=== PATIENT | female | born 1980 | race Two or more races ===

== ENCOUNTER → 2016-07-20 | Outpatient (CLI) | payer OTHER | LOC: OD 11:35 | PROVIDERS: ATTEND Obstetrics & Gynecology Reproductive Endocrinology | DX: Z31.9 Encounter for procreative management, unspecified (principal) | CPT/HCPCS: 36415; 84144 ==

== ENCOUNTER → 2016-09-04 | Outpatient (CLI) | payer OTHER | LOC: OD 13:39 | PROVIDERS: ATTEND Obstetrics & Gynecology Reproductive Endocrinology | DX: Z33.1 Pregnant state, incidental (principal) | CPT/HCPCS: 36415; 84144; 84443; 84702 ==

== ENCOUNTER → 2016-10-23 | Outpatient (CLI) | payer OTHER | LOC: OD 15:01 | PROVIDERS: ATTEND Obstetrics & Gynecology Reproductive Endocrinology | DX: O03.9 Complete or unspecified spontaneous abortion without complication (principal) | CPT/HCPCS: 36415; 84702 ==

== ENCOUNTER → 2016-10-31 | Outpatient (CLI) | payer OTHER | LOC: OD 13:41 | PROVIDERS: ATTEND Obstetrics & Gynecology Reproductive Endocrinology | DX: O03.9 Complete or unspecified spontaneous abortion without complication (principal) | CPT/HCPCS: 36415; 84702 ==

== ENCOUNTER → 2016-11-07 | Outpatient (CLI) | payer OTHER | LOC: OD 09:46 | PROVIDERS: ATTEND Obstetrics & Gynecology Reproductive Endocrinology | DX: O03.9 Complete or unspecified spontaneous abortion without complication (principal) | CPT/HCPCS: 36415; 84702 ==

== ENCOUNTER → 2016-11-15 | Outpatient (CLI) | payer OTHER | LOC: OD 12:06 | PROVIDERS: ATTEND Obstetrics & Gynecology Reproductive Endocrinology | DX: O02.1 Missed abortion (principal) | CPT/HCPCS: 36415; 84702 ==

== ENCOUNTER → 2016-11-28 | Outpatient (CLI) | payer OTHER | LOC: OD 09:46 | PROVIDERS: ATTEND Obstetrics & Gynecology Reproductive Endocrinology | DX: O02.1 Missed abortion (principal) | CPT/HCPCS: 36415; 84702 ==

== ENCOUNTER 2017-06-29 20:13 | Emergency (ER) | payer OTHER ==
--- NOTE | 2017-06-29 22:43 | ER Document Report ---
ED Medical Screen (RME) - General Chief Complaint: High Blood Pressure Stated Complaint: HIGH BLOOD PRESSURE Time Seen by Provider: 06/29/17 22:41 Mode of Arrival: Ambulatory Information source: Patient TRAVEL OUTSIDE OF THE [place] IN LAST 30 DAYS: No - HPI Patient complains to provider of: high bp Notes: 06/29/17 22:41 Patient arrives with complaints of elevated blood pressure. The patient has a history of hypertension. She is 20 weeks and is currently taken 150 mg of labetalol 3 times a day for her blood pressure. She has been keeping her blood pressure log at home and states that it was elevated at home. She thought it might just been her machine so she went to [facility] and it continued to be elevated. She called her FLASH DRIER OPERATOR who directed her to the emergency department. Patient denies any symptoms. No headache, blurred vision , numbness, tingling, weakness. She denies any leg swelling or leg pain. She denies any abdominal pain, vaginal bleeding or discharge. Patient is nontoxic appearing on exam at this time. She is noted to have an elevated BP. Labs and urine have been ordered. Patient was evaluated in triage and was medically screened. Any pertinent orders based on the patient's complaints were ordered at this time. Patient will require further evaluation and will be taken to a room for further evaluation by another provider. This was explained to the patient and/or family at this time. - Related Data Allergies/Adverse Reactions: No Known Allergies Allergy (Unverified 05/12/14 20:55) Past Medical History - Past Medical History Cardiac Medical History: Reports: Hx Hypertension - Immunizations Hx Diphtheria, Pertussis, Tetanus Vaccination: Yes Physical Exam - Vital signs Vitals: Temp Pulse Resp BP Pulse Ox 98.3 F 80 17 165/102 H 99 06/29/17 20:57 06/29/17 20:57 06/29/17 20:57 06/29/17 20:57 06/29/17 20:57 Course - Vital Signs Vital signs: Temp Pulse Resp BP Pulse Ox 98.3 F 80 17 165/102 H 99 06/29/17 20:57 06/29/17 20:57 06/29/17 20:57 06/29/17 20:57 06/29/17 20:57
[2017-06-29 23:33] LABS: ABSOLUTE EOSINOPHILS # (AUTO) 0.1 10^3/uL (0.0-0.6); ABSOLUTE LYMPHOCYTES (AUTO) 2.2 10^3/uL (0.5-4.7); ABSOLUTE MONOCYTES (AUTO) 0.8 10^3/uL (0.1-1.4); ABSOLUTE NEUT (AUTO) 6.8 10^3/uL (1.7-8.2); BASOPHILS % (AUTO) 0.4 % (0-2); EOSINOPHILS % (AUTO) 1.4 % (0-6); HEMATOCRIT 32.1 % (36.0-47.0); HEMOGLOBIN 10.7 g/dL (12.0-15.5); LYMPHOCYTES % (AUTO) 22.2 % (13-45); MEAN CORPUSCULAR HEMOGLOBIN 27.9 pg (27.0-33.4); MEAN CORPUSCULAR HGB CONC 33.3 g/dL (32.0-36.0); MEAN CORPUSCULAR VOLUME 84 fl (80-97); MONOCYTES % (AUTO) 7.7 % (3-13); PLATELET COUNT 276 10^3/uL (150-450); RED BLOOD COUNT 3.82 10^6/uL (3.72-5.28); RED CELL DISTRIBUTION WIDTH 15.5 % (11.5-14.0); SEGMENTED NEUTROPHILS % (AUTO) 68.3 % (42-78); TOTAL CELLS COUNTED % (AUTO) 100 %
[2017-06-29 23:51] LABS: APPEARANCE,URINE CLOUDY; BILIRUBIN,URINE NEGATIVE (NEGATIVE); COLOR,URINE YELLOW; GLUCOSE, URINE NEGATIVE (NEGATIVE); KETONES,URINE TRACE mg/dL (NEGATIVE); LEUKOCYTE ESTERASE,URINE NEGATIVE (NEGATIVE); NITRITE,URINE NEGATIVE (NEGATIVE); PROTEIN,URINE NEGATIVE (NEGATIVE); URINE SPECIFIC GRAVITY 1.024
[2017-06-30 00:17] LABS: ALANINE AMINOTRANSFERASE 50 U/L (9-52); ALBUMIN 4.3 g/dL (3.5-5.0); ALKALINE PHOSPHATASE 85 U/L (38-126); ANION GAP 11 (5-19); ASPARTATE AMINO TRANSFERASE 31 U/L (14-36); BILIRUBIN,DIRECT 0.2 mg/dL (0.0-0.4); BILIRUBIN,TOTAL 0.2 mg/dL (0.2-1.3); BLOOD UREA NITROGEN 9 mg/dL (7-20); CALCIUM 10.3 mg/dL (8.4-10.2); CARBON DIOXIDE 23 mmol/L (22-30); CHLORIDE 104 mmol/L (98-107); GLUCOSE 72 mg/dL (75-110); POTASSIUM 3.6 mmol/L (3.6-5.0); SODIUM 138.3 mmol/L (137-145); TOTAL PROTEIN 7.1 g/dL (6.3-8.2)
--- NOTE | 2017-06-30 00:51 | ER Document Report ---
ED General - General Chief Complaint: High Blood Pressure Stated Complaint: HIGH BLOOD PRESSURE Time Seen by Provider: 06/29/17 22:41 Mode of Arrival: Ambulatory Notes: Patient is a 36-year-old woman at 20 weeks who presents with concerns of hypertension. She denies any additional concerns other than that her blood pressure readings have been high at home. She states that she has been taking the labetalol that was prescribed by her BED TEACHER for her hypertension during this . She has a history of a placental abruption during her prior and she states that this has her very worried about her elevated blood pressure. She denies any abdominal pain, vaginal bleeding, vaginal discharge, headache, shortness of breath or syncope. Nothing seems to improve or worsen her blood pressure. TRAVEL OUTSIDE OF THE [place] IN LAST 30 DAYS: No - Related Data Allergies/Adverse Reactions: No Known Allergies Allergy (Unverified 05/12/14 20:55) Past Medical History - General Information source: Patient - Social History Smoking Status: Never Smoker Frequency of alcohol use: None Drug Abuse: None Lives with: Spouse/Significant other Family History: Reviewed & Not Pertinent Patient has suicidal ideation: No Patient has homicidal ideation: No - Past Medical History Cardiac Medical History: Reports: Hx Hypertension Renal/ Medical History: Denies: Hx Peritoneal Dialysis - Immunizations Hx Diphtheria, Pertussis, Tetanus Vaccination: Yes Review of Systems - Review of Systems Notes: Constitutional: Negative for fever. HENT: Negative for sore throat. Eyes: Negative for visual changes. Cardiovascular: Negative for chest pain. Respiratory: Negative for shortness of breath. Gastrointestinal: Negative for abdominal pain, vomiting or diarrhea. Genitourinary: Negative for dysuria. Musculoskeletal: Negative for back pain. Skin: Negative for rash. Neurological: Negative for headaches, weakness or numbness. 10 point ROS negative except as marked above and in HPI. Physical Exam - Vital signs Vitals: Temp Pulse Resp BP Pulse Ox 98.3 F 80 17 165/102 H 99 06/29/17 20:57 06/29/17 20:57 06/29/17 20:57 06/29/17 20:57 06/29/17 20:57 Interpretation: Hypertensive Notes: PHYSICAL EXAMINATION: GENERAL: Well-appearing, well-nourished and in no acute distress. HEAD: Atraumatic, normocephalic. EYES: Pupils equal round and reactive to light, extraocular movements intact, sclera anicteric, conjunctiva are normal. ENT: nares patent, oropharynx clear without exudates. Moist mucous membranes. NECK: Normal range of motion, supple without lymphadenopathy LUNGS: Breath sounds clear to auscultation bilaterally and equal. No wheezes rales or rhonchi. HEART: Regular rate and rhythm without murmurs ABDOMEN: Gravid uterus, soft, nontender, normoactive bowel sounds. No guarding , no rebound. No masses appreciated. EXTREMITIES: Normal range of motion, no pitting or edema. No cyanosis. NEUROLOGICAL: No focal neurological deficits. Moves all extremities spontaneously and on command. PSYCH: Normal mood, normal affect. SKIN: Warm, Dry, normal turgor, no rashes or lesions noted. Course - Re-evaluation Re-evalutation: 06/30/17 00:49 The patient presents with asymptomatic hypertension in the setting of a 20 week , currently taking labetalol 150 mg 3 times daily. Blood pressure to my pediatric medical assistant is 143 and 99. She denies any abdominal pain, vaginal bleeding or vaginal discharge. Physical examination is unremarkable. I consulted with the BED TEACHER on-call Dr. Dan who has not recommended any additional medication adjustments at this time and states in the rather the patient follow-up in the office for consideration of any medication changes. Patient's laboratories are unremarkable without evidence of protein in the urine, LFT derangements or significant thrombocytopenia. At this time will discharge with return precautions and follow-up recommendations. Verbal discharge instructions given a the bedside and opportunity for questions given. Medication warnings reviewed. Patient is in agreement with this plan and has verbalized understanding of return precautions and the need for primary care follow-up in the next 24-72 hours. - Vital Signs Vital signs: Temp Pulse Resp BP Pulse Ox 98.3 F 80 17 143/99 H 99 06/29/17 20:57 06/29/17 20:57 06/29/17 20:57 06/30/17 00:58 06/29/17 20:57 - Laboratory Result Diagrams: 06/29/17 23:21 06/29/17 23:21 Laboratory results interpreted by me: 06/29/17 06/29/17 06/29/17 23:21 23:21 23:21 Hgb 10.7 L Hct 32.1 L RDW 15.5 H Glucose 72 L Calcium 10.3 H Urine Ketones TRACE H Urine Urobilinogen 2.0 H Discharge - Discharge Clinical Impression: Hypertension during Qualifiers: Hypertension in type: gestational hypertension without significant proteinuria Trimester: second trimester Qualified Code(s): O13.2 - Gestational [ -induced] hypertension without significant proteinuria, second trimester Condition: Good Disposition: HOME, SELF-CARE Additional Instructions: Please follow-up with your BED TEACHER as scheduled. Your labs here are reassuring and the BED TEACHER on-call has not recommended any medication adjustments at this time. Return for any additional concerns you may have including severe headache , chest pain, shortness of breath, passing out, abdominal pain, vaginal bleeding , or any other symptoms that are worrisome to you. Referrals: KIP COLÓN MD [Primary Care Provider] - Follow up as needed
[2017-06-30 00:59] VITALS: BP 143/99
== END 2017-06-30 00:59 | disposition home or self-care (01) ==
LOC: ER 20:13
DX: O13.2 Gestational [pregnancy-induced] hypertension without significant proteinuria, second trimester (principal); Z3A.20 20 weeks gestation of pregnancy
CPT/HCPCS: 36415; 80053; 81001; 85025; 99283

== ENCOUNTER 2017-09-17 11:32 | Outpatient (CLI) | payer OTHER ==
[2017-09-17 12:18] LABS: APPEARANCE,URINE CLOUDY; BILIRUBIN,URINE NEGATIVE (NEGATIVE); COLOR,URINE YELLOW; GLUCOSE, URINE NEGATIVE (NEGATIVE); KETONES,URINE NEGATIVE (NEGATIVE); LEUKOCYTE ESTERASE,URINE TRACE (NEGATIVE); NITRITE,URINE NEGATIVE (NEGATIVE); PROTEIN,URINE 100 mg/dL (NEGATIVE); URINE SPECIFIC GRAVITY 1.019
[2017-09-17 12:29] LABS: URINE AMPHETAMINES SCREEN NEGATIVE; URINE BARBITURATES SCREEN NEGATIVE; URINE BENZODIAZEPINES SCREEN NEGATIVE; URINE COCAINE SCREEN NEGATIVE; URINE MARIJUANA (THC) SCREEN NEGATIVE; URINE METHADONE SCREEN NEGATIVE; URINE PHENCYCLIDINE SCREEN NEGATIVE
[2017-09-17 12:37] LABS: ABSOLUTE EOSINOPHILS # (AUTO) 0.1 10^3/uL (0.0-0.6); ABSOLUTE LYMPHOCYTES (AUTO) 1.7 10^3/uL (0.5-4.7); ABSOLUTE MONOCYTES (AUTO) 0.8 10^3/uL (0.1-1.4); ABSOLUTE NEUT (AUTO) 7.7 10^3/uL (1.7-8.2); BASOPHILS % (AUTO) 0.4 % (0-2); EOSINOPHILS % (AUTO) 1.2 % (0-6); HEMATOCRIT 34.3 % (36.0-47.0); LYMPHOCYTES % (AUTO) 16.8 % (13-45); MEAN CORPUSCULAR HEMOGLOBIN 27.7 pg (27.0-33.4); MEAN CORPUSCULAR HGB CONC 32.2 g/dL (32.0-36.0); MEAN CORPUSCULAR VOLUME 86 fl (80-97); MONOCYTES % (AUTO) 7.6 % (3-13); PLATELET COUNT 244 10^3/uL (150-450); RED BLOOD COUNT 3.99 10^6/uL (3.72-5.28); RED CELL DISTRIBUTION WIDTH 17.7 % (11.5-14.0); TOTAL CELLS COUNTED % (AUTO) 100 %; WHITE BLOOD COUNT 10.4 10^3/uL (4.0-10.5)
[2017-09-17 12:39] LABS: UR PRO/CREAT RATIO RESULT 0.2 mg/mg (0.0-0.2); URINE CREATININE 251.3 mg/dL (16-327); URINE PROTEIN 55.4 mg/dL (<12)
[2017-09-17 12:55] LABS: ALANINE AMINOTRANSFERASE 47 U/L (9-52); ALBUMIN 3.6 g/dL (3.5-5.0); ALKALINE PHOSPHATASE 94 U/L (38-126); ANION GAP 9 (5-19); ASPARTATE AMINO TRANSFERASE 26 U/L (14-36); BILIRUBIN,DIRECT 0.1 mg/dL (0.0-0.4); BILIRUBIN,TOTAL 0.2 mg/dL (0.2-1.3); BLOOD UREA NITROGEN 5 mg/dL (7-20); CALCIUM 9.5 mg/dL (8.4-10.2); CARBON DIOXIDE 24 mmol/L (22-30); CHLORIDE 105 mmol/L (98-107); GLUCOSE 87 mg/dL (75-110); LDH 459 U/L (313-618); POTASSIUM 3.2 mmol/L (3.6-5.0); SODIUM 138.3 mmol/L (137-145); TOTAL PROTEIN 6.2 g/dL (6.3-8.2); URIC ACID 5.2 mg/dL (2.5-7.0)
[2017-09-20 10:25] LABS: 24 HOUR URINE PROTEIN RESULT 297 mg/day (42-225)
== END 2017-09-17 13:30 | disposition home or self-care (01) ==
LOC: LC 11:32
PROVIDERS: ATTEND Obstetrics & Gynecology
PROC: 4A1HXCZ Monitoring of Products of Conception, Cardiac Rate, External Approach (ICD-10-PCS; principal; 2017-09-17)
DX: O14.93 Unspecified pre-eclampsia, third trimester (principal); O09.523 Supervision of elderly multigravida, third trimester; Z3A.31 31 weeks gestation of pregnancy
CPT/HCPCS: 36415; 80053; 80307; 81001; 82570; 83615; 84156; 84550; 85025

== ENCOUNTER 2017-09-28 09:19 | Outpatient (CLI) | payer OTHER ==
--- NOTE | 2017-09-28 10:04 | Non Stress Test Report ---
Non Stress Test Datetime Report Generated by CPN: 09/28/2017 10:04 DEMOGRAPHIC Test Number: 1 EGA NST: 33.1 INDICATION Indication for Study: Ordered by Provider Indication for Study (NST) Other: repeat from office MONITORING Monitor Explained: Monitor Explained; Test Explained; Patient Verbalized Understanding Time on Monitor: 09/28/2017 09:26 Time off Monitor: 09/28/2017 10:02 NST Duration: 36 NST INTERVENTIONS NST Interventions: PO Hydration BABY A: [id number] BABY A Movement : Present Contraction Frequency : x1 FHR Baseline : 130 Accelerations : 15X15 Decelerations : None Variability : Moderate 6-25bpm NST Review: Meets Criteria for Reactive NST NST Review and Verified By : D Bellavance RNC NST Results: Reactive NST REPORT Report Trigger: Send Report
== END 2017-09-28 10:44 | disposition home or self-care (01) ==
LOC: LC 09:19
PROVIDERS: ATTEND Obstetrics & Gynecology Gynecology
PROC: 4A1HXCZ Monitoring of Products of Conception, Cardiac Rate, External Approach (ICD-10-PCS; principal; 2017-09-28)
DX: O09.523 Supervision of elderly multigravida, third trimester (principal); Z3A.33 33 weeks gestation of pregnancy
CPT/HCPCS: 59025

== ENCOUNTER 2017-10-15 10:48 | Outpatient (CLI) | payer OTHER ==
[2017-10-15 11:28] LABS: APPEARANCE,URINE CLEAR; BILIRUBIN,URINE NEGATIVE (NEGATIVE); COLOR,URINE YELLOW; GLUCOSE, URINE NEGATIVE (NEGATIVE); KETONES,URINE NEGATIVE (NEGATIVE); LEUKOCYTE ESTERASE,URINE NEGATIVE (NEGATIVE); NITRITE,URINE NEGATIVE (NEGATIVE); PROTEIN,URINE NEGATIVE (NEGATIVE); URINE SPECIFIC GRAVITY 1.004; UROBILINOGEN,URINE NEGATIVE mg/dL (<2.0)
[2017-10-15 11:48] LABS: ABSOLUTE EOSINOPHILS # (AUTO) 0.1 10^3/uL (0.0-0.6); ABSOLUTE LYMPHOCYTES (AUTO) 1.9 10^3/uL (0.5-4.7); ABSOLUTE MONOCYTES (AUTO) 0.5 10^3/uL (0.1-1.4); ABSOLUTE NEUT (AUTO) 6.5 10^3/uL (1.7-8.2); BASOPHILS % (AUTO) 0.3 % (0-2); EOSINOPHILS % (AUTO) 1.2 % (0-6); HEMATOCRIT 35.1 % (36.0-47.0); HEMOGLOBIN 11.6 g/dL (12.0-15.5); LYMPHOCYTES % (AUTO) 21.1 % (13-45); MEAN CORPUSCULAR HEMOGLOBIN 28.2 pg (27.0-33.4); MEAN CORPUSCULAR HGB CONC 33.1 g/dL (32.0-36.0); MEAN CORPUSCULAR VOLUME 85 fl (80-97); MONOCYTES % (AUTO) 5.9 % (3-13); PLATELET COUNT 191 10^3/uL (150-450); RED BLOOD COUNT 4.12 10^6/uL (3.72-5.28); RED CELL DISTRIBUTION WIDTH 16.2 % (11.5-14.0); SEGMENTED NEUTROPHILS % (AUTO) 71.5 % (42-78); TOTAL CELLS COUNTED % (AUTO) 100 %; WHITE BLOOD COUNT 9.1 10^3/uL (4.0-10.5)
[2017-10-15 11:57] LABS: UR PRO/CREAT RATIO RESULT 0.4 mg/mg (0.0-0.2); URINE CREATININE 51.2 mg/dL (16-327); URINE PROTEIN 19.9 mg/dL (<12)
[2017-10-15 12:00] LABS: URINE AMPHETAMINES SCREEN NEGATIVE; URINE BARBITURATES SCREEN NEGATIVE; URINE BENZODIAZEPINES SCREEN NEGATIVE; URINE COCAINE SCREEN NEGATIVE; URINE MARIJUANA (THC) SCREEN NEGATIVE; URINE METHADONE SCREEN NEGATIVE; URINE PHENCYCLIDINE SCREEN NEGATIVE
[2017-10-15 12:06] LABS: ALANINE AMINOTRANSFERASE 53 U/L (9-52); ALBUMIN 3.5 g/dL (3.5-5.0); ALKALINE PHOSPHATASE 130 U/L (38-126); ANION GAP 12 (5-19); ASPARTATE AMINO TRANSFERASE 29 U/L (14-36); BILIRUBIN,DIRECT 0.3 mg/dL (0.0-0.4); BILIRUBIN,TOTAL 0.3 mg/dL (0.2-1.3); BLOOD UREA NITROGEN 5 mg/dL (7-20); CALCIUM 10.3 mg/dL (8.4-10.2); CARBON DIOXIDE 22 mmol/L (22-30); CHLORIDE 105 mmol/L (98-107); GLUCOSE 67 mg/dL (75-110); LDH 513 U/L (313-618); POTASSIUM 3.6 mmol/L (3.6-5.0); SODIUM 138.8 mmol/L (137-145); TOTAL PROTEIN 6.4 g/dL (6.3-8.2); URIC ACID 5.9 mg/dL (2.5-7.0)
--- NOTE | 2017-10-15 12:12 | Non Stress Test Report ---
Non Stress Test Datetime Report Generated by CPN: 10/15/2017 12:12 DEMOGRAPHIC EGA NST: 35.4 INDICATION Indication for Study: Chronic Hypertension MONITORING Monitor Explained: Monitor Explained; Test Explained; Patient Verbalized Understanding Time on Monitor: 10/15/2017 11:03 Time off Monitor: 10/15/2017 11:37 NST Duration: 34 NST INTERVENTIONS NST Interventions: PO Hydration; Reposition Patient Physician Notified NST: J.Cash, CNM BABY A: [id number] BABY A Movement : Present Contraction Frequency : x2 FHR Baseline : 125 Accelerations : 15X15 Decelerations : None Variability : Moderate 6-25bpm NST Review: Meets Criteria for Reactive NST NST Review and Verified By : ENRIKE BAIN Results: Reactive NST REPORT Report Trigger: Send Report
== END 2017-10-15 13:52 | disposition home or self-care (01) ==
LOC: LC 10:48
PROVIDERS: ATTEND Obstetrics & Gynecology Gynecology
PROC: 4A1HXCZ Monitoring of Products of Conception, Cardiac Rate, External Approach (ICD-10-PCS; principal; 2017-10-15)
DX: O16.3 Unspecified maternal hypertension, third trimester (principal); Z3A.35 35 weeks gestation of pregnancy
CPT/HCPCS: 36415; 59025; 80053; 80307; 81001; 82570; 83615; 84156; 84550; 85025

== ENCOUNTER 2017-10-16 10:31 | Observation (INO) | payer OTHER ==
[2017-10-16] MEDS ORDERED: ACETAMINOPHEN 325 MG TABLET PO ONE (11:33)
[2017-10-16] MEDS ORDERED: ONDANSETRON 4 MG TAB.RAPDIS PO ONE (11:33)
[2017-10-16] MEDS ORDERED: ONDANSETRON HCL 8 MG TABLET ONE (11:43)
[2017-10-16] MEDS ORDERED: ACETAMINOPHEN 325 MG TABLET ONE (11:44)
[2017-10-16 11:46] LABS: APPEARANCE,URINE CLOUDY; BILIRUBIN,URINE NEGATIVE (NEGATIVE); GLUCOSE, URINE NEGATIVE (NEGATIVE); KETONES,URINE NEGATIVE (NEGATIVE); LEUKOCYTE ESTERASE,URINE TRACE (NEGATIVE); NITRITE,URINE NEGATIVE (NEGATIVE); PROTEIN,URINE 100 mg/dL (NEGATIVE); URINE SPECIFIC GRAVITY 1.018
--- NOTE | 2017-10-16 11:50 | Non Stress Test Report ---
Non Stress Test Datetime Report Generated by CPN: 10/16/2017 11:50 DEMOGRAPHIC EGA NST: 35.5 INDICATION Indication for Study: Gestational Hypertension MONITORING Monitor Explained: Monitor Explained; Test Explained; Patient Verbalized Understanding Time on Monitor: 10/16/2017 10:55 Time off Monitor: 10/16/2017 11:47 NST Duration: 52 NST INTERVENTIONS NST Interventions: PO Hydration Physician Notified NST: C. Garcia CNM BABY A: [id number] BABY A Movement : Present Contraction Frequency : Irregular FHR Baseline : 125 Accelerations : 15X15 Decelerations : None Variability : Moderate 6-25bpm NST Review: Meets Criteria for Reactive NST NST Review and Verified By : Eze Montiel RN NST Results: Reactive NST REPORT Report Trigger: Send Report
[2017-10-16 11:54] LABS: COLOR,URINE YELLOW
[2017-10-16 11:58] LABS: UR PRO/CREAT RATIO RESULT 0.2 mg/mg (0.0-0.2); URINE CREATININE 221.2 mg/dL (16-327); URINE PROTEIN 52.4 mg/dL (<12)
[2017-10-16 12:22] LABS: URINE AMPHETAMINES SCREEN NEGATIVE; URINE BARBITURATES SCREEN NEGATIVE; URINE COCAINE SCREEN NEGATIVE; URINE METHADONE SCREEN NEGATIVE; URINE PHENCYCLIDINE SCREEN NEGATIVE
[2017-10-16 12:31] LABS: URINE BENZODIAZEPINES SCREEN NEGATIVE
[2017-10-16 12:32] LABS: URINE MARIJUANA (THC) SCREEN NEGATIVE
[2017-10-16] MEDS: ACETAMINOPHEN 325 MG TABLET PO PRN (20:45)
[2017-10-17] MEDS ORDERED: ONDANSETRON HCL INJ/PF 4 MG/2 ML SDV IV PRN (08:35)
[2017-10-17] MEDS: ACETAMINOPHEN 325 MG TABLET PO PRN (08:39)
[2017-10-17] MEDS ORDERED: ONDANSETRON HCL 8 MG TABLET PO ONE (08:44)
[2017-10-17] MEDS ORDERED: LABETALOL HCL 200 MG TABLET PO ONE (09:00)
[2017-10-17] MEDS ORDERED: ASPIRIN 81 MG TABLET, CHEWABLE PO SCH (10:00)
[2017-10-17] MEDS ORDERED: NIFEDIPINE 30 MG TAB.ER.24 PO SCH (10:00)
[2017-10-17] MEDS ORDERED: (PENDING PHARMACY ID) (Pnv119/Iron Fum/Folic/Docusate [Prenatal 19 Tablet] 1 EACH) PO SCH (10:00)
[2017-10-17] MEDS ORDERED: PRENATAL VITAMIN W DHA CAPSULE PO SCH (10:00)
[2017-10-17 12:31] LABS: 24 HOUR URINE PROTEIN RESULT 253 mg/day (42-225); URINE PROTEIN 16.3 mg/dL (<12)
[2017-10-17] MEDS ORDERED: LABETALOL HCL 200 MG TABLET PO SCH (14:00)
--- NOTE | 2017-10-17 14:38 | PDOC DISCHARGE SUMMARY ---
General - Admit/Disc Date/PCP Admission Date/Primary Care Provider: 10/16/17 16:00 KIP COLÓN MD Discharge Date: 10/17/17 - Discharge Diagnosis (1) Chronic hypertension affecting Is this a current diagnosis for this admission?: Yes Summary: chtn without s/x pre-eclampsia - Additional Information Discharge Diet: Regular Discharge Activity: Activity As Tolerated Prescriptions: No.123/Iron/Folic AC [Elite-Ob Caplet] 1 each PO DAILY #30 tablet Home Medications: Aspirin 81 mg PO DAILY 09/17/17 Labetalol HCl 300 mg PO TID 09/17/17 Nifedipine [Procardia XL 30 mg Tablet] 1 tab PO DAILY 09/17/17 [id number]/Iron Fum/Folic/Docusate [ 19 Tablet] 1 each PO DAILY 09/28/17 No.123/Iron/Folic AC [Elite-Ob Caplet] 1 each PO DAILY #30 tablet 10/17 History of Present Illness History of Present Illness: TERESA WILLIAM is a 37 year old female Hospital Course Hospital Course: 24 hour urine 253 Physical Exam - Physical Exam Vital Signs: Temp Pulse Resp BP Pulse Ox 97.7 F 73 17 140/96 H 100 10/17/17 12:11 10/17/17 12:11 10/17/17 12:11 10/17/17 12:11 10/17/17 12:11 Intake & Output 10/16/17 10/17/17 10/18/17 06:59 06:59 06:59 Intake Total 240 Balance 240 Weight 76.8 kg General appearance: PRESENT: no acute distress Head exam: PRESENT: atraumatic - Obstetrical Exam External Genitalia: normal Result Laboratory Results: 10/17/17 10:45 Ur 24 Hour Volume 1550 Ur Total Protein 24 Hr 253 H Plan Discharge Plan: d/c home today f/u in office sunday plan delivery at 37 weeks Time Spent: Less than 30 Minutes
[2017-10-17 17:46] VITALS: BP 133/87
== END 2017-10-17 17:10 | disposition home or self-care (01) ==
LOC: LC 10:31 → LR 16:00 → 2S 17:18
PROVIDERS: ADMIT Obstetrics & Gynecology; ATTEND Obstetrics & Gynecology
PROC: 4A0HXCZ Measurement of Products of Conception, Cardiac Rate, External Approach (ICD-10-PCS; principal; 2017-10-16)
DX: O10.913 Unspecified pre-existing hypertension complicating pregnancy, third trimester (principal); O47.03 False labor before 37 completed weeks of gestation, third trimester; Z3A.35 35 weeks gestation of pregnancy; Z79.899 Other long term (current) drug therapy; Z79.82 Long term (current) use of aspirin
CPT/HCPCS: 59025; 84156 ×2; 82570; 87077; 81001; 87081; 80307; G0378 ×2; G0379; S0119 ×2

== ENCOUNTER 2017-10-24 09:47 | Outpatient (CLI) | payer OTHER ==
--- NOTE | 2017-10-24 10:27 | Non Stress Test Report ---
Non Stress Test Datetime Report Generated by CPN: 10/24/2017 10:27 DEMOGRAPHIC EGA NST: 36.6 EGA NST: 36.6 INDICATION Indication for Study: Previous Demise; Chronic Hypertension Indication for Study: Gestational Hypertension; Ordered by Provider MONITORING Monitor Explained: Monitor Explained; Test Explained; Patient Verbalized Understanding Monitor Explained: Monitor Explained; Test Explained; Patient Verbalized Understanding Time on Monitor: 10/24/2017 10:00 Time on Monitor: 10/24/2017 09:56 Time off Monitor: 10/24/2017 10:23 NST Duration: 23 NST INTERVENTIONS NST Interventions: PO Hydration; Reposition Patient NST Interventions: PO Hydration Physician Notified NST: H Hood CNM BABY A: [id number] BABY A Movement : Present Movement : Present Contraction Frequency : 0 FHR Baseline : 125 Accelerations : 15X15 Decelerations : None Variability : Moderate 6-25bpm Variability : Moderate 6-25bpm NST Review: Meets Criteria for Reactive NST NST Review and Verified By : Lauren DonaldsonEmmy, RN NST Results: Reactive NST REPORT Report Trigger: Send Report
== END 2017-10-24 10:25 | disposition home or self-care (01) ==
LOC: LC 09:47
PROVIDERS: ATTEND Obstetrics & Gynecology Gynecology
PROC: 4A1HXCZ Monitoring of Products of Conception, Cardiac Rate, External Approach (ICD-10-PCS; principal; 2017-10-24)
DX: O13.3 Gestational [pregnancy-induced] hypertension without significant proteinuria, third trimester (principal); Z3A.36 36 weeks gestation of pregnancy
CPT/HCPCS: 59025

== ENCOUNTER 2017-10-26 06:09 | Inpatient (IN) | payer OTHER ==
[2017-10-26] MEDS ORDERED: RINGERS SOLUTION,LACTATED 300 ML IV ONE (06:33)
[2017-10-26] MEDS ORDERED: OXYTOCIN/NORMAL SALINE 20 UNIT/1,000 ML RTUINJ IV PRN ×2 (06:33→16:03)
[2017-10-26] MEDS ORDERED: RINGERS SOLUTION,LACTATED 1,000 ML IV PRN (06:33)
[2017-10-26] MEDS ORDERED: PENICILLIN G POTASSIUM 5,000,000 UNIT in DEXTROSE 5%-WATER 100 ML IV ONE (06:35)
[2017-10-26] MEDS ORDERED: PENICILLIN G-K 5 MILLION UNIT VIAL ONE ×3 (06:37→15:02)
[2017-10-26 06:50] LABS: APPEARANCE,URINE SLIGHTLY-CLOUDY; BILIRUBIN,URINE NEGATIVE (NEGATIVE); COLOR,URINE YELLOW; GLUCOSE, URINE NEGATIVE (NEGATIVE); KETONES,URINE NEGATIVE (NEGATIVE); LEUKOCYTE ESTERASE,URINE NEGATIVE (NEGATIVE); NITRITE,URINE NEGATIVE (NEGATIVE); PROTEIN,URINE NEGATIVE (NEGATIVE); URINE SPECIFIC GRAVITY 1.011
[2017-10-26 07:05] LABS: ABSOLUTE EOSINOPHILS # (AUTO) 0.1 10^3/uL (0.0-0.6); ABSOLUTE LYMPHOCYTES (AUTO) 1.6 10^3/uL (0.5-4.7); ABSOLUTE MONOCYTES (AUTO) 0.4 10^3/uL (0.1-1.4); ABSOLUTE NEUT (AUTO) 6.8 10^3/uL (1.7-8.2); BASOPHILS % (AUTO) 0.4 % (0-2); EOSINOPHILS % (AUTO) 1.7 % (0-6); HEMATOCRIT 35.2 % (36.0-47.0); HEMOGLOBIN 11.9 g/dL (12.0-15.5); LYMPHOCYTES % (AUTO) 17.9 % (13-45); MEAN CORPUSCULAR HEMOGLOBIN 28.6 pg (27.0-33.4); MEAN CORPUSCULAR HGB CONC 33.8 g/dL (32.0-36.0); MEAN CORPUSCULAR VOLUME 85 fl (80-97); MONOCYTES % (AUTO) 4.9 % (3-13); PLATELET COUNT 240 10^3/uL (150-450); RED BLOOD COUNT 4.16 10^6/uL (3.72-5.28); RED CELL DISTRIBUTION WIDTH 15.6 % (11.5-14.0); SEGMENTED NEUTROPHILS % (AUTO) 75.1 % (42-78); TOTAL CELLS COUNTED % (AUTO) 100 %
[2017-10-26 07:09] LABS: URINE AMPHETAMINES SCREEN NEGATIVE; URINE BARBITURATES SCREEN NEGATIVE; URINE BENZODIAZEPINES SCREEN NEGATIVE; URINE COCAINE SCREEN NEGATIVE; URINE MARIJUANA (THC) SCREEN NEGATIVE; URINE METHADONE SCREEN NEGATIVE; URINE PHENCYCLIDINE SCREEN NEGATIVE
[2017-10-26 07:21] LABS: ALANINE AMINOTRANSFERASE 73 U/L (9-52); ALBUMIN 3.2 g/dL (3.5-5.0); ALKALINE PHOSPHATASE 150 U/L (38-126); ANION GAP 10 (5-19); ASPARTATE AMINO TRANSFERASE 39 U/L (14-36); BILIRUBIN,DIRECT 0.2 mg/dL (0.0-0.4); BILIRUBIN,TOTAL 0.2 mg/dL (0.2-1.3); BLOOD UREA NITROGEN 9 mg/dL (7-20); CALCIUM 10.1 mg/dL (8.4-10.2); CARBON DIOXIDE 23 mmol/L (22-30); CHLORIDE 108 mmol/L (98-107); GLUCOSE 110 mg/dL (75-110); LDH 469 U/L (313-618); POTASSIUM 3.4 mmol/L (3.6-5.0); SODIUM 141.2 mmol/L (137-145); TOTAL PROTEIN 5.9 g/dL (6.3-8.2); URIC ACID 5.2 mg/dL (2.5-7.0)
[2017-10-26] MEDS ORDERED: LABETALOL HCL 200 MG TABLET ONE (08:05)
[2017-10-26] MEDS ORDERED: OXYTOCIN/NORMAL SALINE 20 UNIT/1,000 ML RTUINJ ONE (08:05)
[2017-10-26] MEDS: PENICILLIN G POTASSIUM 2,500,000 UNIT in DEXTROSE 5%-WATER 50 ML IV SCH ×2 (10:47→15:16)
--- NOTE | 2017-10-26 12:19 | Admission Physical ---
Datetime Report Generated by CPN: 10/26/2017 12:18 CURRENT ADMISSION Hx Assessment: The History has been Reviewed and is Current ALLERGIES Medication Allergies: No Medication Allergies: No Known Allergies (10/26/2017) Latex: No Latex Allergies Food Allergies: N/A Environmental Allergies: N/a OBSTETRICAL HISTORY EDC: 11/15/2017 00:00 : 5 Para: 2 Term: 1 : 1 SAB: 2 IAB: 0 Ectopic: 0 Livin Cesareans: 0 VBACs: 0 Multiple Births: 0 Gestational Diabetes: No Rh Sensitization: No Incompetent Cervix: No JARVIS: No Infertility: Yes ART Treatment: No Uterine Anomaly: No IUGR: No Hx Previous C/S: No Macrosomia: No Hx Loss/Stillborn: No PIH: Yes Hx : Yes Placenta Previa/Abruption: Yes Depression/PP Depression: No PTL/PROM: No Post Hemorrhage: No Current Procedures: Ultrasound; NST Obstetrical History Comments: G1: 1999 39 weeks female 6lbs 1oz G2: 2014 placental abruption, lived one hour male 1lb 1oz G3: 2015 SAB @ 5wks G4: 2016 SAB @ 9wks G5: current SEE RECORDS Alcohol: No Marijuana : No Cocaine: No Other Illicit Drugs: No Cigarettes: Never Smoker. [id number] MEDICAL HISTORY Diabetes: No Blood Transfusion: No Pulmonary Disease (Asthma, TB): No Breast Disease: No Hypertension: Yes [employer] Surgery: No Heart Disease: No Hosp/Surgery: Yes (Annotations: Data stored by N on behalf of user) Autoimmune Disorder: No Anesthetic Complications: No Kidney Disease: No Abnormal Pap Smear: No Neuro/Epilepsy: No Psychiatric Disorders: No Other Medical Diseases: Yes Hepatitis/Liver Disease: Yes Significant Family History: No Varicosities/Phlebitis: No Trauma/Violence : No Thyroid Dysfunction: No Medical History Comments: Childbirth x 2; PCOS; CHTN; Hx of Hepatitis A INFECTIOUS HISTORY Gonorrhea: No Genital Herpes: No Chlamydia: No Tuberculosis: No Syphilis: No Hepatitis: No HIV/AIDS Exposure: No Rash or Viral Illness: No HPV: No PHYSICAL EXAM General: Normal HEENT: Deferred Neurologic: Normal Thyroid: Normal Heart: Normal Lungs: Normal Breast: Deferred Back: Normal Abdomen: Normal Genitourinary Exam: Normal Extremities: Normal DTRs: Normal Pelvic Type: Adequate Physical Exam Comments: Chronic hypertension, Pre-E Obesity Hx Hep A Hx of abruption at 25 weeks Vital Signs: Reviewed FETUS A Monitoring: External US FHR- Baseline: 125 Variability: Moderate 6-25bpm Accelerations: 15X15 Decelerations: None FHR Category: Category I Admit Comment: Admitted for IOL for Pre-E and HChronic hypertension on Procardia 30 and Labetalol 300 TID Cat 1 strip, GBS +, waiting ROM when antibiotics infused, irreg uc's PLANS FOR LABOR AND DELIVERY Labor and Delivery: None Pain Management: None Feeding Preference: Breast Benefit of Breast Feed Discussed: Yes Circumcision: N/A INFORMED CONSENT Assignment: Leida Santiago MD Signature: with User ID: Becki : with User ID: [email or web address]
--- NOTE | 2017-10-26 13:37 | L&D Progress Notes ---
PROGRESS NOTES Datetime Report Generated by CPN: 10/26/2017 13:36 PROGRESS NOTE Procedures: Artificial ROM; Sterile Vag Exam Plan: Continue Present Management; Induction Informed Consent Obtained: Vaginal Delivery Vital Signs : Reviewed; Within Normal Limits Comment: VE = 4-5/80/vtx/0, Variable decel with uc x 1, discussed POC, does not want epidural, last delivery 18 years ago Plan: anticipate , monitor closely FETUS A Monitoring: External US Variability: Moderate 6-25bpm Accelerations: 15X15 Decelerations: None : 37.1 SIGNATURE SIGNATURE: [id number];[id number];[id number] SIGNATURE: [id number];[id number] SIGNATURE: [id number] SIGNATURE: [id number] SIGNATURE: 14,[id number] SIGNATURE: [id number] Assignment: Leida Santiago MD Signature: with User ID: [email or web address] : with User ID: [email or web address]
[2017-10-26] MEDS ORDERED: MISOPROSTOL 0.2 MG TABLET ONE (15:03)
[2017-10-26] MEDS ORDERED: LIDOCAINE 1% INJ-PF (10 MG/ML) 30 ML SDV ONE (15:03)
[2017-10-26] MEDS ORDERED: NALBUPHINE HCL INJ 10 MG/1 ML AMPULE IV ONE (15:20)
[2017-10-26] MEDS ORDERED: NALBUPHINE HCL INJ 10 MG/1 ML AMPULE ONE (15:20)
[2017-10-26] MEDS ORDERED: DIPH/PERTUSS(ACELL)/TETANUS VAC/PF 0.5 ML SYR (>=10YO) IM PRN (16:03)
[2017-10-26] MEDS ORDERED: DIPHENHYDRAMINE HCL 25 MG CAPSULE PO PRN (16:03)
[2017-10-26] MEDS ORDERED: DIBUCAINE 1% OINTMENT 28 GM TP PRN (16:03)
[2017-10-26] MEDS ORDERED: BENZOCAINE/MENTHOL AEROSOL SPRAY 56 ML TOP PRN (16:03)
[2017-10-26] MEDS ORDERED: MEASLES,MUMPS&RUBELLA VACC/PF 0.5 ML VIAL SUBCUT PRN (16:03)
[2017-10-26] MEDS ORDERED: ACETAMINOPHEN WITH CODEINE #3 TABLET PO PRN ×2 (16:03)
[2017-10-26] MEDS ORDERED: MAGNESIUM HYDROXIDE SUSP 30 ML UDCUP PO PRN (16:03)
[2017-10-26] MEDS ORDERED: PROMETHAZINE HCL 25 MG TABLET PO PRN (16:03)
[2017-10-26] MEDS ORDERED: ACETAMINOPHEN 650 MG SUPP.RECT PR PRN (16:03)
[2017-10-26] MEDS ORDERED: NA PHOS,M-B/NA PHOS,DI-BA (ADULT) 133 ML ENEMA PR PRN (16:03)
[2017-10-26] MEDS ORDERED: PSEUDOEPHEDRINE HCL 30 MG TABLET PO PRN (16:03)
[2017-10-26] MEDS ORDERED: GLYCERIN/WITCH HAZEL LEAF 1 EACH MED..PAD TP PRN (16:03)
[2017-10-26] MEDS ORDERED: PROMETHAZINE HCL 25 MG SUPP.RECT PR PRN (16:03)
[2017-10-26] MEDS ORDERED: PROMETHAZINE HCL INJ 25 MG/1 ML VIAL IV PRN (16:03)
[2017-10-26] MEDS ORDERED: MISOPROSTOL 0.2 MG TABLET PV PRN (16:03)
[2017-10-26] MEDS ORDERED: HYDRALAZINE HCL INJ/PF 20 MG/1 ML SDV IV ONE (17:33)
[2017-10-26] MEDS ORDERED: HYDRALAZINE HCL INJ/PF 20 MG/1 ML SDV ONE (17:33)
[2017-10-26] MEDS ORDERED: FAMOTIDINE 20 MG TABLET PO SCH (22:00)
[2017-10-26] MEDS: LABETALOL HCL 200 MG TABLET PO SCH (22:05)
[2017-10-26] MEDS: IBUPROFEN 800 MG TABLET PO SCH (22:06)
[2017-10-27] MEDS: NIFEDIPINE 30 MG TAB.ER.24 PO SCH ×2 (01:04→20:12)
[2017-10-27] MEDS: FERROUS SULFATE 325 MG TABLET PO SCH ×3 (01:48→17:17)
[2017-10-27] MEDS: DOCUSATE SODIUM 100 MG CAPSULE PO SCH ×3 (01:48→17:17)
[2017-10-27] MEDS: LABETALOL HCL 200 MG TABLET PO SCH ×3 (05:23→20:13)
[2017-10-27] MEDS: IBUPROFEN 800 MG TABLET PO SCH ×3 (05:24→21:41)
[2017-10-27 08:12] LABS: HEMATOCRIT 29.2 % (36.0-47.0); MEAN CORPUSCULAR HEMOGLOBIN 28.3 pg (27.0-33.4); MEAN CORPUSCULAR HGB CONC 33.2 g/dL (32.0-36.0); MEAN CORPUSCULAR VOLUME 85 fl (80-97); PLATELET COUNT 215 10^3/uL (150-450); RED BLOOD COUNT 3.43 10^6/uL (3.72-5.28); RED CELL DISTRIBUTION WIDTH 15.6 % (11.5-14.0); WHITE BLOOD COUNT 11.5 10^3/uL (4.0-10.5)
[2017-10-27 08:13] LABS: HEMOGLOBIN 9.7 g/dL (12.0-15.5)
--- NOTE | 2017-10-27 09:19 | PDOC PROGRESS REPORT ---
Subjective-OB Progress Note for:: 10/27/17 Subjective: Day #1, s/p denies concerns, voiding without difficulty, lochia is stable, pain well controlled. Physical Exam (OB) Vital Signs: Temp Pulse Resp BP Pulse Ox 97.9 F 85 18 137/83 H 99 10/27/17 07:25 10/27/17 07:25 10/27/17 07:25 10/27/17 07:25 10/27/17 07:25 Intake & Output 10/26/17 10/27/17 10/28/17 06:59 06:59 06:59 Weight 77.4 kg - Lochia Lochia Amount: Scant < 10 ml Lochia Color: Rubra/Red - Abdomen Description: Soft, Round Hernia Present: No Fundal Description: Firm, Midline Fundal Height: u/u - u/2 Objective-Diagnostic Laboratory: 10/27/17 07:36 10/26/17 06:49 10/27/17 07:36 WBC 11.5 H RBC 3.43 L Hgb 9.7 L D Hct 29.2 L MCV 85 MCH 28.3 MCHC 33.2 RDW 15.6 H Plt Count 215 Assessment and Plan(PN) - Assessment and Plan (1) AMA (advanced maternal age) multigravida 35+ Qualifiers: Trimester: third trimester Qualified Code(s): O09.523 - Supervision of elderly multigravida, third trimester Is this a current diagnosis for this admission?: Yes Plan: routine pp care (2) Delivery normal Is this a current diagnosis for this admission?: Yes Plan: routine pp care (3) Chronic hypertension affecting Is this a current diagnosis for this admission?: Yes Plan: monitor bp and s/sx - Time Spent with Patient Time with patient: Less than 15 minutes Critical Time spent with patient: Less than 15 minutes Smoking Education Provided: Over 3 minutes Medications reviewed and adjusted accordingly: Yes - Disposition Anticipated Discharge: Home Within: within 24 hours
[2017-10-27] MEDS: PRENATAL VITAMIN W DHA CAPSULE PO SCH (10:28)
[2017-10-27] MEDS: SENNOSIDES/DOCUSATE 8.6-50 MG 1 EACH TABLET PO SCH (10:28)
[2017-10-27] MEDS ORDERED: LABETALOL HCL 200 MG TABLET PO ONE (20:30)
[2017-10-27] MEDS ORDERED: NIFEDIPINE 30 MG TAB.ER.24 PO ONE (21:00)
[2017-10-28] MEDS: IBUPROFEN 800 MG TABLET PO SCH (05:23)
[2017-10-28] MEDS ORDERED: LABETALOL HCL 200 MG TABLET PO SCH (06:00)
[2017-10-28] MEDS: FERROUS SULFATE 325 MG TABLET PO SCH (10:07)
[2017-10-28] MEDS: PRENATAL VITAMIN W DHA CAPSULE PO SCH (10:08)
[2017-10-28] MEDS: SENNOSIDES/DOCUSATE 8.6-50 MG 1 EACH TABLET PO SCH (10:08)
[2017-10-28] MEDS: DOCUSATE SODIUM 100 MG CAPSULE PO SCH (10:08)
--- NOTE | 2017-10-28 10:09 | PDOC DISCHARGE SUMMARY ---
Final Diagnosis Discharge Date: 10/28/17 - Final Diagnosis (1) AMA (advanced maternal age) multigravida 35+ Is this a current diagnosis for this admission?: Yes (2) Delivery normal Is this a current diagnosis for this admission?: Yes (3) Chronic hypertension affecting Is this a current diagnosis for this admission?: Yes Discharge Data - Discharge Medication Prescriptions: Docusate Sodium [Colace 100 mg Capsule] 100 mg PO BID #60 capsule Ferrous Sulfate [Feosol 325 mg Tablet] 325 mg PO BID #60 tablet Ibuprofen [Motrin 800 mg Tablet] 800 mg PO Q8 #60 tablet Home Medications: Aspirin 81 mg PO DAILY 09/17/17 Labetalol HCl 100 mg PO TID 09/17/17 Nifedipine [Procardia XL 30 mg Tablet] 1 tab PO DAILY 09/17/17 No.123/Iron/Folic AC [Elite-Ob Caplet] 1 each PO DAILY #30 tablet 10/17 Docusate Sodium [Colace 100 mg Capsule] 100 mg PO BID #60 capsule 10/28/17 Ferrous Sulfate [Feosol 325 mg Tablet] 325 mg PO BID #60 tablet 10/28/17 Ibuprofen [Motrin 800 mg Tablet] 800 mg PO Q8 #60 tablet 10/28/17 Gestational Age: 37 Reason(s) for Admission: Induction of Labor, Group B Strep Positive Procedures: NST Intrapartum Procedure(s): Spontaneous Vaginal Delivery - [place] Data Baby 1 Female Home with Mother: Yes Complications: No - Diagnosis Test Laboratory: Temp Pulse Resp BP Pulse Ox 98.2 F 80 17 142/94 H 99 10/28/17 08:01 10/28/17 08:01 10/28/17 08:01 10/28/17 08:01 10/28/17 08:01 10/26/17 10/26/17 10/27/17 06:11 06:49 07:36 RBC 4.16 3.43 L Hgb 11.9 L 9.7 L D Hct 35.2 L 29.2 L Urine Opiates Screen NEGATIVE - Discharge information/Instructions Discharge Activity: Activity As Tolerated, Pelvic Rest, No tub bath Discharge Diet: Regular Disposition: HOME, SELF-CARE Follow up with: [facility] in: 1, Weeks
[2017-10-28 10:55] VITALS: BP 142/94
[2017-10-28] MEDS ORDERED: NIFEDIPINE 30 MG TAB.ER.24 PO SCH (22:00)
== END 2017-10-28 12:05 | disposition home or self-care (01) | DRG 775 ==
LOC: LR 06:09 → 2S 19:02
PROVIDERS: ADMIT Obstetrics & Gynecology; ATTEND Obstetrics & Gynecology
PROC: 10E0XZZ Delivery of Products of Conception, External Approach (ICD-10-PCS; principal; 2017-10-26)
PROC: 4A1HXCZ Monitoring of Products of Conception, Cardiac Rate, External Approach (ICD-10-PCS; 2017-10-26)
DX: O11.4 Pre-existing hypertension with pre-eclampsia, complicating childbirth (principal); O76 Abnormality in fetal heart rate and rhythm complicating labor and delivery; O99.214 Obesity complicating childbirth; E66.9 Obesity, unspecified; O99.824 Streptococcus B carrier state complicating childbirth; O69.81X0 Labor and delivery complicated by cord around neck, without compression, not applicable or unspecified; Z86.19 Personal history of other infectious and parasitic diseases; Z68.33 Body mass index [BMI] 33.0-33.9, adult; Z37.0 Single live birth
CPT/HCPCS: 36415; 80053; 80307; 81005; 83615; 84550; 85025; 85027; 86592; 86850; 86900; 86901; J0360; J2300; J2540; J2590; J3490

== ENCOUNTER 2018-04-09 14:41 | Emergency (ER) | payer MEDICAID, OTHER ==
[2018-04-09 14:45] VITALS: BP 130/81
[2018-04-09] MEDS ORDERED: PROMETHAZINE HCL INJ 25 MG/1 ML VIAL IV ONE (15:08)
[2018-04-09] MEDS ORDERED: NORMAL SALINE 1000 ML 1,000 ML IV ONE ×2 (15:08→18:20)
--- NOTE | 2018-04-09 15:10 | ER Document Report ---
ED Medical Screen (RME) - General Chief Complaint: Nausea/Vomiting/Diarrhea Stated Complaint: VOMITING Time Seen by Provider: 04/09/18 15:01 Mode of Arrival: Ambulatory Information source: Patient Notes: 37-year-old female presents emergency department with complaints of nausea, vomiting, diarrhea, upper abdominal cramping. Patient states that she is 8 weeks . She has followed up with an DEPUTY COURT and has had an ultrasound done that shows a live IUP per the patient. Patient states that her symptoms have been going on for the last 3 days. They have been constant. Patient states that she is not able to keep any food or fluids down. She denies any medical problems. She denies any dysuria, hematuria, vaginal bleeding, vaginal discharge. I have greeted and performed a rapid initial assessment of this patient. A comprehensive ED assessment and evaluation of the patient, analysis of test results and completion of the medical decision making process will be conducted by additional ED providers. PHYSICAL EXAMINATION: GENERAL: Well-appearing, well-nourished and in no acute distress. HEAD: Atraumatic, normocephalic. EYES: Pupils equal round extraocular movements intact, conjunctiva are normal. ENT: Nares patent NECK: Normal range of motion LUNGS: No respiratory distress Musculoskeletal: Normal range of motion NEUROLOGICAL: Normal speech, normal gait. PSYCH: Normal mood, normal affect. SKIN: Warm, Dry, normal turgor, no rashes or lesions noted. TRAVEL OUTSIDE OF THE [place] IN LAST 30 DAYS: No - Related Data Allergies/Adverse Reactions: No Known Allergies Allergy (Verified 04/09/18 14:41) Past Medical History - Social History Chew tobacco use (# tins/day): No Drug Abuse: None - Past Medical History Cardiac Medical History: Reports: Hx Hypertension Renal/ Medical History: Denies: Hx Peritoneal Dialysis - Immunizations Hx Diphtheria, Pertussis, Tetanus Vaccination: Yes Physical Exam - Vital signs Vitals: Temp Pulse Resp BP Pulse Ox 98.7 F 80 14 130/81 H 100 04/09/18 14:45 04/09/18 14:45 04/09/18 14:45 04/09/18 14:45 04/09/18 14:45 Course - Vital Signs Vital signs: Temp Pulse Resp BP Pulse Ox 98.7 F 80 14 130/81 H 100 04/09/18 14:45 04/09/18 14:45 04/09/18 14:45 04/09/18 14:45 04/09/18 14:45 Doctor's Discharge - Discharge Referrals: ADRIAN CLOUD MD [Primary Care Provider] - Follow up as needed
[2018-04-09 16:13] LABS: ABSOLUTE EOSINOPHILS # (AUTO) 0.1 10^3/uL (0.0-0.6); ABSOLUTE LYMPHOCYTES (AUTO) 1.2 10^3/uL (0.5-4.7); ABSOLUTE MONOCYTES (AUTO) 0.9 10^3/uL (0.1-1.4); ABSOLUTE NEUT (AUTO) 4.9 10^3/uL (1.7-8.2); BASOPHILS % (AUTO) 0.7 % (0-2); EOSINOPHILS % (AUTO) 0.7 % (0-6); HEMATOCRIT 38.1 % (36.0-47.0); MEAN CORPUSCULAR HEMOGLOBIN 28.5 pg (27.0-33.4); MEAN CORPUSCULAR HGB CONC 34.1 g/dL (32.0-36.0); MEAN CORPUSCULAR VOLUME 84 fl (80-97); MONOCYTES % (AUTO) 12.8 % (3-13); PLATELET COUNT 281 10^3/uL (150-450); RED BLOOD COUNT 4.56 10^6/uL (3.72-5.28); RED CELL DISTRIBUTION WIDTH 14.6 % (11.5-14.0); SEGMENTED NEUTROPHILS % (AUTO) 68.8 % (42-78); TOTAL CELLS COUNTED % (AUTO) 100 %; WHITE BLOOD COUNT 7.2 10^3/uL (4.0-10.5)
[2018-04-09 17:19] LABS: ALANINE AMINOTRANSFERASE 25 U/L (9-52); ALKALINE PHOSPHATASE 76 U/L (38-126); ANION GAP 14 (5-19); ASPARTATE AMINO TRANSFERASE 24 U/L (14-36); BILIRUBIN,DIRECT 0.2 mg/dL (0.0-0.4); BILIRUBIN,TOTAL 0.4 mg/dL (0.2-1.3); BLOOD UREA NITROGEN 8 mg/dL (7-20); CALCIUM 9.2 mg/dL (8.4-10.2); CARBON DIOXIDE 24 mmol/L (22-30); CHLORIDE 104 mmol/L (98-107); GLUCOSE 65 mg/dL (75-110); POTASSIUM 3.3 mmol/L (3.6-5.0); TOTAL PROTEIN 6.7 g/dL (6.3-8.2)
[2018-04-09 18:12] LABS: APPEARANCE,URINE SLIGHTLY-CLOUDY; BILIRUBIN,URINE NEGATIVE (NEGATIVE); COLOR,URINE YELLOW; GLUCOSE, URINE NEGATIVE (NEGATIVE); KETONES,URINE 80 mg/dL (NEGATIVE); LEUKOCYTE ESTERASE,URINE NEGATIVE (NEGATIVE); NITRITE,URINE NEGATIVE (NEGATIVE); PROTEIN,URINE NEGATIVE (NEGATIVE); URINE SPECIFIC GRAVITY 1.013; UROBILINOGEN,URINE NEGATIVE mg/dL (<2.0)
--- NOTE | 2018-04-09 18:28 | ER Document Report ---
ED GI/ - General Chief Complaint: Nausea/Vomiting/Diarrhea Stated Complaint: VOMITING Time Seen by Provider: 04/09/18 15:01 Mode of Arrival: Ambulatory Information source: Patient Notes: 37-year-old female presents to ED for complaint of nausea vomiting diarrhea and upper abdominal pain and cramping. She states that she is 8 weeks . She has been followed up with women's health care. She has a 8-week child. She states this is her sixth and she has 2 live children. Her daughter just got over a viral illness and she has been having the symptoms for about 3 days. She states she is having some trouble keeping down fluids. She denies any medical problems. She denies any dysuria frequency urgency vaginal bleeding or vaginal discharge patient is alert and oriented respirations regular and unlabored speaking in full sentences walking with a even steady gait. TRAVEL OUTSIDE OF THE [place] IN LAST 30 DAYS: No - HPI Patient complains to provider of: Abdominal pain, Diarrhea, , Vomiting - Nausea Onset: Other - 2 days Timing/Duration: Persistent Quality of pain: Cramping Severity at maximum: Moderate Severity in ED: Moderate Pain Level: 4 Location: LUQ, RUQ Associated symptoms: Diarrhea, Nausea, Vomiting. denies: Urinary hesitancy, Urinary frequency, Urinary retention, Urinary urgency, Vaginal discharge Exacerbated by: Denies Relieved by: Denies Similar symptoms previously: Yes Recently seen / treated by doctor: No - Related Data Allergies/Adverse Reactions: No Known Allergies Allergy (Verified 04/09/18 14:41) Past Medical History - General Information source: Patient - Social History Smoking Status: Never Smoker Cigarette use (# per day): No Chew tobacco use (# tins/day): No Smoking Education Provided: No Frequency of alcohol use: None Drug Abuse: None Occupation: childcare Lives with: Family Family History: Reviewed & Not Pertinent Patient has suicidal ideation: No Patient has homicidal ideation: No - Past Medical History Cardiac Medical History: Reports: Hx Hypertension Pulmonary Medical History: Reports: None EENT Medical History: Reports: None Neurological Medical History: Reports: None Endocrine Medical History: Reports: None Renal/ Medical History: Reports: None Malignancy Medical History: Reports: None GI Medical History: Reports: None Musculoskeletal Medical History: Reports None Skin Medical History: Reports None Psychiatric Medical History: Reports: None Traumatic Medical History: Reports: None Infectious Medical History: Reports: None Surgical Hx: Negative Past Surgical History: Reports: None - Immunizations Hx Diphtheria, Pertussis, Tetanus Vaccination: Yes - 2017 Review of Systems - Review of Systems Constitutional: No symptoms reported EENT: No symptoms reported Cardiovascular: No symptoms reported Respiratory: No symptoms reported Gastrointestinal: Abdominal pain, Diarrhea, Nausea, Vomiting Genitourinary: No symptoms reported Female Genitourinary: Musculoskeletal: No symptoms reported Skin: No symptoms reported Hematologic/Lymphatic: No symptoms reported Neurological/Psychological: No symptoms reported -: Yes All other systems reviewed and negative Physical Exam - Vital signs Vitals: Temp Pulse Resp BP Pulse Ox 98.7 F 80 14 130/81 H 100 04/09/18 14:45 04/09/18 14:45 04/09/18 14:45 04/09/18 14:45 04/09/18 14:45 Interpretation: Normal - General General appearance: Appears well, Alert - HEENT Head: Normocephalic, Atraumatic Eyes: Normal Pupils: PERRL - Respiratory Respiratory status: No respiratory distress Chest status: Nontender Breath sounds: Normal Chest palpation: Normal - Cardiovascular Rhythm: Regular Heart sounds: Normal auscultation Murmur: No - Abdominal Inspection: Normal Distension: No distension Bowel sounds: Normal Tenderness: Nontender Organomegaly: No organomegaly - Back Back: Normal, Nontender - Extremities General upper extremity: Normal inspection, Nontender, Normal color, Normal ROM , Normal temperature General lower extremity: Normal inspection, Nontender, Normal color, Normal ROM , Normal temperature, Normal weight bearing. No: Cirilo's sign - Neurological Neuro grossly intact: Yes Cognition: Normal Orientation: AAOx4 Terrell Coma Scale Eye Opening: Spontaneous Anthony Coma Scale Verbal: Oriented Terrell Coma Scale Motor: Obeys Commands Terrell Coma Scale Total: 15 Speech: Normal Motor strength normal: LUE, RUE, LLE, RLE Sensory: Normal - Psychological Associated symptoms: Normal affect, Normal mood - Skin Skin Temperature: Warm Skin Moisture: Dry Skin Color: Normal Course - Re-evaluation Re-evalutation: 04/09/18 19:[address] Benjamin. Patient is taking fluids well. She has had 2 cecille charles's and 2 packs of jeanette crackers with no nausea or vomiting. Patient also got a second liter of fluids due to the ketones in her urine. Patient will be discharged home with a prescription of Phenergan. She has been instructed to follow-up with her ARMATURE INSPECTOR as scheduled. Patient verbalized understanding and agreement with treatment plan. - Vital Signs Vital signs: Temp Pulse Resp BP Pulse Ox 98.7 F 80 14 130/81 H 100 04/09/18 14:45 04/09/18 14:45 04/09/18 14:45 04/09/18 14:45 04/09/18 14:45 - Laboratory Result Diagrams: 04/09/18 15:31 04/09/18 16:53 Laboratory results interpreted by me: 04/09/18 04/09/18 04/09/18 15:31 16:53 17:47 RDW 14.6 H Potassium 3.3 L Glucose 65 L Beta HCG, Quant 165404.00 H Urine Ketones 80 H Urine Blood MODERATE H Procedures - Immobilization Left Hand Time completed: 19:30 Pre-Proc Neuro Vasc Exam: Normal Immobilizer type: Other - radial gutter Performed by: PCT, Other - PA student Alignment checked and good: Yes - Laceration/Wound Repair Left Hand Time completed: 19:15 Wound length (cm): 5 Wound's Depth, Shape: Into muscle, Linear, Irregular Laceration pre-procedure: Betadine prep applied Anesthetic type: 1% Lidocaine Volume Anesthetic (mLs): 18 Wound explored: Contaminated Irrigated w/ Saline (mLs): 200 Wound Repaired With: Sutures Suture Size/Type: Ethilon Number of Sutures: 7 Layer Closure?: Yes - tendon repair by Dr Stewart Post-procedure wound care: Sterile dressing applied, Splint applied Post-procedure NV exam normal: Yes Complications: Yes - tendon laceration Hands back picture: 1 - laceration with tendon involvement Discharge - Discharge Clinical Impression: Nausea vomiting and diarrhea Condition: Stable Disposition: HOME, SELF-CARE Additional Instructions: VOMITING: Vomiting (or nausea without vomiting) can be caused by many other different problems. It can mean that something's wrong with the stomach, such as ulcers or inflammation or the intestinal tract, such as appendicitis. But it can also be a symptom of a problem that has nothing to do with the stomach or intestines. Vomiting is common with severe headaches, earaches, tonsillitis, and kidney infections, etc. We see it with pneumonia or heart attacks. Drugs can cause nausea and vomiting. Many abdominal problems cause vomiting; for example, gallstones, kidney stones, pancreatitis, and intestinal obstruction ( blocked bowels). In most cases, curing the vomiting depends on fixing the problem that caused it. For temporary relief, we may use an anti-nausea medicine. For home use, we can prescribe suppositories, chewable pills, pills that dissolve in the mouth, or liquid anti-nausea drugs. If the vomiting seems to be caused by a problem in the stomach, acid-suppressing drugs may be prescribed as well. It's important to avoid dehydration. Sip small amounts of clear liquids ( soft drinks, tea, broth, etc) . Try to take fluids frequently even if you are vomiting to prevent dehydration. Take increasing amounts of fluid and when liquids are being consumed successfully, advance to small amounts of bland food (toast, soups, mashed potatoes, etc.) until you are able to resume a regular diet. Avoid aspirin, tobacco, and alcohol. If the vomiting worsens, if the problem that's making you vomit worsens, or if there's evidence of bleeding in the stomach (such as black, tarry stool, or bloody or black vomit), you should return immediately. Also, return if abdominal pain worsens or becomes localized to one area or you develop high fever. Call your doctor if you aren't improved in 24 hours. DIARRHEA, NON-SPECIFIC: Diarrhea means frequent, watery stools. There are many causes. Any problem that keeps the intestinal tract from absorbing water from the stool can lead to diarrhea. A sudden new diarrhea problem is usually caused by a virus, food sensitivity, toxic bacteria, or drugs. In this case, we expect the problem to go away soon. Testing is done only if you seem seriously ill from the diarrhea. If you have chronic diarrhea, or diarrhea that keeps coming back, we need to find out why. Chronic diarrhea can be due to inflammation of the bowels such as Crohn's disease or ulcerative colitis, food sensitivity such as intolerance to lactose or wheat protein, irritable bowel syndrome, and other problems. If your diarrhea is a significant problem but it's not clear why you have it, we' ll refer you to a specialist for further testing. During an episode of diarrhea, drink small amounts (two to six ounces) of clear liquids (soft drinks, sport drinks, herb teas, broth, etc). Take fluids frequently to prevent dehydration. It's usually not a problem to take mild anti- diarrhea medication such as Kaopectate or Pepto-Bismol. As the diarrhea eases, advance to small amounts of bland food (mashed potato, toast) for 24 hours. Call the physician if blood appears in your vomit or stool, if vomiting lasts longer than 24 hours, if the abdominal pain worsens or becomes localized to one area, if you develop high fever, or if you become lightheaded and weak. VIRAL SYNDROME: The physician has diagnosed a viral infection. Viruses not only cause "colds," but can cause many different symptoms including generalized aching, fever, headache, cough, diarrhea, nausea, vomiting, and fatigue. The treatment, for the most part, is simply relief of symptoms. This means that antibiotics are usually not given. Rest, fluids, pain medications and, occasionally, medication for the specific symptoms that are most bothersome will be prescribed. Use good handwashing to avoid passing the virus to others. Shared toys should be cleaned with disinfectant. Clean the toilets, sinks, and counter surfaces in bathrooms. Launder clothing in hot water. Contact the physician if you develop any new or unusual symptoms such as severe headache, stiff neck, high fever, chest pain, productive cough, or shortness of breath. You should be rechecked if you don't see marked improvement within seven to 10 days. INTRAVENOUS (I V) FLUIDS: As part of your care today, you received intravenous (IV) fluids. IV fluids are administered to patients who are dehydrated or to those who have certain chemical (electrolyte) abnormalities that need correcting. ANTINAUSEA MEDICATION: You have been given a medication to suppress nausea and vomiting. This type of medication can be given as a shot, pill, or suppository. It will usually last for many hours. Pills and shots usually last six to eight hours. For the typical illness, only one or two doses of the medication may be necessary. Mild lightheadedness may occur. This type of medicine can cause drowsiness. Do not drive or operate dangerous machinery while under its influence. Do not mix with alcohol. See your doctor at once if you have muscle spasms or tightness, or uncontrollable motions (particularly of the neck, mouth, or jaw). Persistent vomiting or severe lightheadedness should also be evaluated by the physician. I have given you a copy of all of your lab results. Please take these lab results with you to your doctor's visit later this week that is already scheduled. I have given you a prescription for Phenergan. Please discuss this with your doctor if you have any concerns. Continue to use your vitamin B6 and your cecille that you are using for your nausea. Please try to make sure you do not become diet hydrated by drinking Pedialyte or water cecille charles. Fruit juices may cause your diarrhea were to become worse. FOLLOW-UP CARE: If you have been referred to a physician for follow-up care, call the physician s office for an appointment as you were instructed or within the next two days. If you experience worsening or a significant change in your symptoms, notify the physician immediately or return to the Emergency Department at any time for re-evaluation. Prescriptions: Promethazine HCl [Phenergan 25 mg Tablet] 25 mg PO Q6H PRN #15 tablet PRN Reason: Forms: Elevated Blood Pressure, Return to Work Referrals: ADRIAN CLOUD MD [ACTIVE STAFF] - Follow up as needed
== END 2018-04-09 20:11 | disposition home or self-care (01) ==
LOC: ER 14:41
PROC: 0HQGXZZ Repair Left Hand Skin, External Approach (ICD-10-PCS; principal; 2018-04-09)
DX: O21.9 Vomiting of pregnancy, unspecified (principal); O26.891 Other specified pregnancy related conditions, first trimester; R19.7 Diarrhea, unspecified; O9A.211 Injury, poisoning and certain other consequences of external causes complicating pregnancy, first trimester; S61.412A Laceration without foreign body of left hand, initial encounter; R10.10 Upper abdominal pain, unspecified; O16.1 Unspecified maternal hypertension, first trimester; X58.XXXA Exposure to other specified factors, initial encounter; Z3A.08 8 weeks gestation of pregnancy
CPT/HCPCS: 99284; 96361; 96374; 36415; 84702; 85025; 80053; 81001; 12002; J2550; J7030

== ENCOUNTER 2018-07-22 00:06 | Outpatient (CLI) | payer OTHER ==
[2018-07-22 00:46] LABS: APPEARANCE,URINE CLEAR; BILIRUBIN,URINE NEGATIVE (NEGATIVE); COLOR,URINE STRAW; GLUCOSE, URINE NEGATIVE (NEGATIVE); KETONES,URINE NEGATIVE (NEGATIVE); LEUKOCYTE ESTERASE,URINE NEGATIVE (NEGATIVE); NITRITE,URINE NEGATIVE (NEGATIVE); PROTEIN,URINE NEGATIVE (NEGATIVE); URINE SPECIFIC GRAVITY 1.008; UROBILINOGEN,URINE NEGATIVE mg/dL (<2.0)
[2018-07-22 00:59] LABS: URINE AMPHETAMINES SCREEN NEGATIVE; URINE BARBITURATES SCREEN NEGATIVE; URINE BENZODIAZEPINES SCREEN NEGATIVE; URINE COCAINE SCREEN NEGATIVE; URINE MARIJUANA (THC) SCREEN NEGATIVE; URINE METHADONE SCREEN NEGATIVE; URINE PHENCYCLIDINE SCREEN NEGATIVE
== END 2018-07-22 01:18 | disposition home or self-care (01) ==
LOC: LC 00:06
PROVIDERS: ATTEND Obstetrics & Gynecology Gynecology
PROC: 4A1HXCZ Monitoring of Products of Conception, Cardiac Rate, External Approach (ICD-10-PCS; principal; 2018-07-22)
DX: O47.02 False labor before 37 completed weeks of gestation, second trimester (principal); Z3A.23 23 weeks gestation of pregnancy
CPT/HCPCS: 80307; 81001

== ENCOUNTER → 2018-09-23 | Outpatient (CLI) | payer OTHER ==
[2018-09-23 12:44] LABS: HEMATOCRIT 35.3 % (36.0-47.0); MEAN CORPUSCULAR VOLUME 85 fl (80-97); PLATELET COUNT 184 10^3/uL (150-450); RED BLOOD COUNT 4.14 10^6/uL (3.72-5.28); RED CELL DISTRIBUTION WIDTH 14.8 % (11.5-14.0); WHITE BLOOD COUNT 8.2 10^3/uL (4.0-10.5)
[2018-09-23 13:03] LABS: ASPARTATE AMINO TRANSFERASE 22 U/L (14-36); URIC ACID 5.7 mg/dL (2.5-7.0)
[2018-09-23 13:10] LABS: UR PRO/CREAT RATIO RESULT 0.1 mg/mg (0.0-0.2); URINE CREATININE 145.5 mg/dL (16-327); URINE PROTEIN 15.2 mg/dL (<12)
== END ==
LOC: OD 11:38
PROVIDERS: ATTEND Registered Nurse Women's Health Care, Ambulatory
DX: O14.90 Unspecified pre-eclampsia, unspecified trimester (principal)
CPT/HCPCS: 36415; 82565; 82570; 83615; 84156; 84450; 84550; 85027

== ENCOUNTER 2018-09-26 09:59 | Outpatient (CLI) | payer OTHER ==
--- NOTE | 2018-09-26 10:35 | Non Stress Test Report ---
Non Stress Test Datetime Report Generated by CPN: 09/26/2018 10:35 DEMOGRAPHIC EGA NST: 33.0 INDICATION Indication for Study: Chronic Hypertension; Ordered by Provider Indication for Study (NST) Other: chtn VITAL SIGNS Temperature - NST: 98.5 RESP - NST: 16 MONITORING Monitor Explained: Monitor Explained; Test Explained; Patient Verbalized Understanding Time on Monitor: 09/26/2018 10:06 Time off Monitor: 09/26/2018 10:26 NST Duration: 20 NST INTERVENTIONS NST Interventions: PO Hydration; Reposition Patient Physician Notified NST: K Prince CNM BABY A: [id number] BABY A Movement : Present Contraction Frequency : x1 FHR Baseline : 130 Accelerations : 15X15 Decelerations : None Variability : Moderate 6-25bpm NST Review: Meets Criteria for Reactive NST NST Review and Verified By : Karlos Lancaster RN NST Results: Reactive NST REPORT Report Trigger: Send Report
== END 2018-09-26 10:35 | disposition home or self-care (01) ==
LOC: LC 09:59
PROVIDERS: ATTEND Obstetrics & Gynecology Gynecology
PROC: 4A1HXCZ Monitoring of Products of Conception, Cardiac Rate, External Approach (ICD-10-PCS; principal; 2018-09-26)
DX: O13.3 Gestational [pregnancy-induced] hypertension without significant proteinuria, third trimester (principal); Z3A.33 33 weeks gestation of pregnancy
CPT/HCPCS: 59025

== ENCOUNTER 2018-09-26 19:28 | Outpatient (CLI) | payer OTHER ==
[2018-09-26 20:14] LABS: APPEARANCE,URINE CLEAR; BILIRUBIN,URINE NEGATIVE (NEGATIVE); COLOR,URINE YELLOW; GLUCOSE, URINE NEGATIVE (NEGATIVE); KETONES,URINE NEGATIVE (NEGATIVE); LEUKOCYTE ESTERASE,URINE NEGATIVE (NEGATIVE); NITRITE,URINE NEGATIVE (NEGATIVE); PROTEIN,URINE NEGATIVE (NEGATIVE); URINE SPECIFIC GRAVITY 1.012; UROBILINOGEN,URINE NEGATIVE mg/dL (<2.0)
[2018-09-26 20:29] LABS: URINE AMPHETAMINES SCREEN NEGATIVE; URINE BARBITURATES SCREEN NEGATIVE; URINE BENZODIAZEPINES SCREEN NEGATIVE; URINE COCAINE SCREEN NEGATIVE; URINE MARIJUANA (THC) SCREEN NEGATIVE; URINE METHADONE SCREEN NEGATIVE; URINE PHENCYCLIDINE SCREEN NEGATIVE
== END 2018-09-26 20:36 | disposition home or self-care (01) ==
LOC: LC 19:28
PROVIDERS: ATTEND Obstetrics & Gynecology Gynecology
PROC: 4A1HXCZ Monitoring of Products of Conception, Cardiac Rate, External Approach (ICD-10-PCS; principal; 2018-09-26)
DX: Z34.93 Encounter for supervision of normal pregnancy, unspecified, third trimester (principal)
CPT/HCPCS: 80307; 81001

== ENCOUNTER 2018-10-10 09:52 | Outpatient (CLI) | payer OTHER ==
--- NOTE | 2018-10-10 10:09 | Non Stress Test Report ---
Non Stress Test Datetime Report Generated by CPN: 10/10/2018 10:09 DEMOGRAPHIC EGA NST: 33.0 INDICATION Indication for Study: Ordered by Provider MONITORING Monitor Explained: Monitor Explained; Test Explained; Patient Verbalized Understanding Time on Monitor: 09/26/2018 19:42 Time off Monitor: 09/26/2018 20:32 NST Duration: 50 NST INTERVENTIONS NST Interventions: None Physician Notified NST: Dr. Dan BABY A: [id number] BABY A Movement : Present Contraction Frequency : x1 Accelerations : 15X15 Decelerations : None Variability : Moderate 6-25bpm NST Review: Meets Criteria for Reactive NST NST Review and Verified By : NDoyle RN NST Results: Reactive NST REPORT Report Trigger: Send Report
== END 2018-10-10 10:35 | disposition home or self-care (01) ==
LOC: LC 09:52
PROVIDERS: ATTEND Obstetrics & Gynecology
PROC: 4A1HXCZ Monitoring of Products of Conception, Cardiac Rate, External Approach (ICD-10-PCS; principal; 2018-10-10)
DX: Z34.93 Encounter for supervision of normal pregnancy, unspecified, third trimester (principal); Z3A.33 33 weeks gestation of pregnancy
CPT/HCPCS: 59025

== ENCOUNTER → 2018-10-14 | Outpatient (CLI) | payer OTHER ==
[2018-10-14 12:48] LABS: HEMATOCRIT 37.6 % (36.0-47.0); HEMOGLOBIN 12.6 g/dL (12.0-15.5); MEAN CORPUSCULAR HEMOGLOBIN 28.5 pg (27.0-33.4); MEAN CORPUSCULAR HGB CONC 33.4 g/dL (32.0-36.0); MEAN CORPUSCULAR VOLUME 85 fl (80-97); PLATELET COUNT 171 10^3/uL (150-450); RED BLOOD COUNT 4.41 10^6/uL (3.72-5.28); RED CELL DISTRIBUTION WIDTH 14.7 % (11.5-14.0); WHITE BLOOD COUNT 8.1 10^3/uL (4.0-10.5)
[2018-10-14 13:08] LABS: ASPARTATE AMINO TRANSFERASE 21 U/L (14-36); URIC ACID 5.6 mg/dL (2.5-7.0)
== END ==
LOC: OD 11:18
PROVIDERS: ATTEND Obstetrics & Gynecology
DX: O16.9 Unspecified maternal hypertension, unspecified trimester (principal); Z3A.00 Weeks of gestation of pregnancy not specified
CPT/HCPCS: 36415; 82565; 83615; 84450; 84550; 85027

== ENCOUNTER 2018-10-21 19:45 | Outpatient (CLI) | payer OTHER ==
[2018-10-21] MEDS ORDERED: ACETAMINOPHEN 325 MG TABLET PO ONE (20:05)
[2018-10-21] MEDS ORDERED: ACETAMINOPHEN 325 MG TABLET ONE (20:06)
[2018-10-21 20:20] LABS: APPEARANCE,URINE SLIGHTLY-CLOUDY; BILIRUBIN,URINE NEGATIVE (NEGATIVE); COLOR,URINE YELLOW; GLUCOSE, URINE NEGATIVE (NEGATIVE); KETONES,URINE NEGATIVE (NEGATIVE); LEUKOCYTE ESTERASE,URINE NEGATIVE (NEGATIVE); NITRITE,URINE NEGATIVE (NEGATIVE); PROTEIN,URINE 30 mg/dL (NEGATIVE); URINE SPECIFIC GRAVITY 1.005; UROBILINOGEN,URINE NEGATIVE mg/dL (<2.0)
[2018-10-21 20:37] LABS: URINE PROTEIN 59.3 mg/dL (<12)
[2018-10-21 20:40] LABS: UR PRO/CREAT RATIO RESULT 1.3 mg/mg (0.0-0.2); URINE CREATININE 46.6 mg/dL (16-327)
[2018-10-21 20:41] LABS: URINE AMPHETAMINES SCREEN NEGATIVE; URINE BARBITURATES SCREEN NEGATIVE; URINE BENZODIAZEPINES SCREEN NEGATIVE; URINE COCAINE SCREEN NEGATIVE; URINE MARIJUANA (THC) SCREEN NEGATIVE; URINE METHADONE SCREEN NEGATIVE; URINE PHENCYCLIDINE SCREEN NEGATIVE
[2018-10-21 21:09] LABS: ABSOLUTE EOSINOPHILS # (AUTO) 0.1 10^3/uL (0.0-0.6); ABSOLUTE LYMPHOCYTES (AUTO) 1.9 10^3/uL (0.5-4.7); ABSOLUTE MONOCYTES (AUTO) 0.6 10^3/uL (0.1-1.4); ABSOLUTE NEUT (AUTO) 6.1 10^3/uL (1.7-8.2); BASOPHILS % (AUTO) 0.3 % (0-2); HEMOGLOBIN 12.2 g/dL (12.0-15.5); LYMPHOCYTES % (AUTO) 21.3 % (13-45); MEAN CORPUSCULAR HEMOGLOBIN 28.6 pg (27.0-33.4); MEAN CORPUSCULAR HGB CONC 33.1 g/dL (32.0-36.0); MEAN CORPUSCULAR VOLUME 86 fl (80-97); MONOCYTES % (AUTO) 7.3 % (3-13); PLATELET COUNT 167 10^3/uL (150-450); RED BLOOD COUNT 4.28 10^6/uL (3.72-5.28); RED CELL DISTRIBUTION WIDTH 14.7 % (11.5-14.0); SEGMENTED NEUTROPHILS % (AUTO) 70.1 % (42-78); TOTAL CELLS COUNTED % (AUTO) 100 %; WHITE BLOOD COUNT 8.7 10^3/uL (4.0-10.5)
[2018-10-21 21:26] LABS: ALANINE AMINOTRANSFERASE 21 U/L (9-52); ALBUMIN 3.6 g/dL (3.5-5.0); ALKALINE PHOSPHATASE 127 U/L (38-126); ANION GAP 10 (5-19); ASPARTATE AMINO TRANSFERASE 19 U/L (14-36); BILIRUBIN,DIRECT 0.2 mg/dL (0.0-0.4); BILIRUBIN,TOTAL 0.3 mg/dL (0.2-1.3); BLOOD UREA NITROGEN 8 mg/dL (7-20); CALCIUM 9.9 mg/dL (8.4-10.2); CARBON DIOXIDE 21 mmol/L (22-30); CHLORIDE 107 mmol/L (98-107); GLUCOSE 73 mg/dL (75-110); POTASSIUM 3.5 mmol/L (3.6-5.0); SODIUM 137.6 mmol/L (137-145); TOTAL PROTEIN 6.4 g/dL (6.3-8.2); URIC ACID 6.4 mg/dL (2.5-7.0)
--- NOTE | 2018-10-21 21:50 | Non Stress Test Report ---
Non Stress Test Datetime Report Generated by CPN: 10/21/2018 21:50 DEMOGRAPHIC Test Number: 4 EGA NST: 36.4 INDICATION Indication for Study: Ordered by Provider MONITORING Monitor Explained: Monitor Explained; Test Explained; Patient Verbalized Understanding Time on Monitor: 10/21/2018 19:59 Time off Monitor: 10/21/2018 21:44 NST Duration: 105 NST INTERVENTIONS NST Interventions: PO Hydration Physician Notified NST: Dr. Villarreal BABY A: [id number] BABY A Movement : Present Contraction Frequency : 10-15 FHR Baseline : 135 Accelerations : 15X15 Decelerations : None Variability : Moderate 6-25bpm NST Review: Meets Criteria for Reactive NST NST Review and Verified By : JULIO CÉSAR Marc NST Results: Reactive NST REPORT Report Trigger: Send Report
== END 2018-10-21 21:50 | disposition home or self-care (01) ==
LOC: LC 19:45
PROVIDERS: ATTEND Student in an Organized Health Care Education/Training Program
PROC: 4A1HXCZ Monitoring of Products of Conception, Cardiac Rate, External Approach (ICD-10-PCS; principal; 2018-10-21)
DX: O21.2 Late vomiting of pregnancy (principal); Z3A.36 36 weeks gestation of pregnancy
CPT/HCPCS: 36415; 59025; 80053; 80307; 81005; 82570; 83615; 84156; 84550; 85025

== ENCOUNTER 2018-10-23 23:18 | Inpatient (IN) | payer OTHER ==
[2018-10-23] MEDS ORDERED: ZOLPIDEM TARTRATE 5 MG TABLET PO PRN (23:39)
[2018-10-23] MEDS ORDERED: ACETAMINOPHEN 325 MG TABLET PO PRN (23:39)
[2018-10-23] MEDS ORDERED: MAG HYDROX/AL HYDROX/SIMETH SUSP 30 ML UDCUP PO PRN (23:39)
[2018-10-23] MEDS ORDERED: RINGERS SOLUTION,LACTATED 1,000 ML IV PRN (23:39)
[2018-10-23] MEDS ORDERED: OXYTOCIN 10 UNIT/ML VIAL ONE (23:50)
[2018-10-23] MEDS ORDERED: MISOPROSTOL 0.2 MG TABLET ONE (23:51)
[2018-10-23] MEDS ORDERED: LIDOCAINE 1% INJ-PF (10 MG/ML) 30 ML SDV ONE (23:51)
[2018-10-23] MEDS ORDERED: DINOPROSTONE 10 MG VAGINAL INSERT.SR ONE (23:51)
[2018-10-23] MEDS ORDERED: OXYTOCIN/NORMAL SALINE 20 UNIT/1,000 ML RTUINJ ONE (23:51)
[2018-10-24] MEDS ORDERED: DINOPROSTONE 10 MG VAGINAL INSERT.SR PV ONE (00:15)
[2018-10-24] MEDS ORDERED: RINGERS SOLUTION,LACTATED 300 ML IV ONE (00:15)
[2018-10-24 00:20] LABS: ABSOLUTE BASOPHILS # (AUTO) 0.1 10^3/uL (0.0-0.2); ABSOLUTE EOSINOPHILS # (AUTO) 0.1 10^3/uL (0.0-0.6); ABSOLUTE LYMPHOCYTES (AUTO) 2.3 10^3/uL (0.5-4.7); ABSOLUTE MONOCYTES (AUTO) 0.7 10^3/uL (0.1-1.4); BASOPHILS % (AUTO) 0.7 % (0-2); EOSINOPHILS % (AUTO) 0.9 % (0-6); HEMATOCRIT 38.9 % (36.0-47.0); HEMOGLOBIN 12.9 g/dL (12.0-15.5); LYMPHOCYTES % (AUTO) 20.7 % (13-45); MEAN CORPUSCULAR HEMOGLOBIN 28.4 pg (27.0-33.4); MEAN CORPUSCULAR HGB CONC 33.1 g/dL (32.0-36.0); MEAN CORPUSCULAR VOLUME 86 fl (80-97); MONOCYTES % (AUTO) 6.7 % (3-13); PLATELET COUNT 168 10^3/uL (150-450); RED BLOOD COUNT 4.54 10^6/uL (3.72-5.28); RED CELL DISTRIBUTION WIDTH 14.8 % (11.5-14.0); TOTAL CELLS COUNTED % (AUTO) 100 %; WHITE BLOOD COUNT 11.2 10^3/uL (4.0-10.5)
[2018-10-24 00:38] LABS: URINE AMPHETAMINES SCREEN NEGATIVE; URINE BARBITURATES SCREEN NEGATIVE; URINE BENZODIAZEPINES SCREEN NEGATIVE; URINE COCAINE SCREEN NEGATIVE; URINE MARIJUANA (THC) SCREEN NEGATIVE; URINE METHADONE SCREEN NEGATIVE; URINE PHENCYCLIDINE SCREEN NEGATIVE
--- NOTE | 2018-10-24 07:03 | Admission Physical ---
Datetime Report Generated by CPN: 10/24/2018 07:03 CURRENT ADMISSION Chief Complaint: Scheduled Induction of Labor Indication for Induction: Gestational HTN Admit Impression : Term, Intrauterine ; Induction of Labor Admit Plan: Admit to Unit; Initiate Labor Induction Protocol ALLERGIES Medication Allergies: No Medication Allergies: No Known Allergies (10/24/2018) Latex: No Latex Allergies OBSTETRICAL HISTORY EDC: 11/14/2018 00:00 : 6 Para: 3 Term: 2 : 1 SAB: 2 IAB: 0 Ectopic: 0 Livin Cesareans: 0 VBACs: 0 Multiple Births: 0 Gestational Diabetes: No Rh Sensitization: No Incompetent Cervix: No JARVIS: No Infertility: No ART Treatment: No Uterine Anomaly: No IUGR: No Hx Previous C/S: No Macrosomia: No Hx Loss/Stillborn: No PIH: No Hx : Yes Placenta Previa/Abruption: Yes Depression/PP Depression: No PTL/PROM: No Post Hemorrhage: No Obstetrical History Comments: g1-1999, 39 weeks, female, , 6lb 1 oz, no complications g2-2014, 23 weeks, male, , 1lb 1oz, placental abruption, lived one hour before passing g3-2015, 5 weeks, SAB g4-2016, 9 weeks, SAB g5-2017, 37+1 weeks, , female, history of super imposed preeclampsia per records g6-current SEE RECORDS Alcohol: No Marijuana : No Cocaine: No Other Illicit Drugs: No Cigarettes: Never Smoker. [id number] MEDICAL HISTORY Diabetes: No Blood Transfusion: No Pulmonary Disease (Asthma, TB): No Breast Disease: No Hypertension: Yes Autobody Technician Surgery: No Heart Disease: No Hosp/Surgery: Yes Autoimmune Disorder: No Anesthetic Complications: No Kidney Disease: No Abnormal Pap Smear: No Neuro/Epilepsy: No Psychiatric Disorders: No Other Medical Diseases: No Hepatitis/Liver Disease: No Significant Family History: No Varicosities/Phlebitis: No Trauma/Violence : No Thyroid Dysfunction: No Medical History Comments: x 3, AMA, CHTN, obesity INFECTIOUS HISTORY Gonorrhea: No Genital Herpes: No Chlamydia: No Tuberculosis: No Syphilis: No Hepatitis: No HIV/AIDS Exposure: No Rash or Viral Illness: No HPV: No PHYSICAL EXAM General: Normal HEENT: Normal Neurologic: Normal Thyroid: Normal Heart: Normal Lungs: Normal Breast: Normal Back: Normal Abdomen: Normal Genitourinary Exam: Normal Extremities: Normal DTRs: Normal Pelvic Type: Adequate Vital Signs: Reviewed; Within Normal Limits VAGINAL EXAM Dilatation: 2 Effacement: 50 Station: -2 Contraction Comments: rare MEMBRANES Membranes: Intact FETUS A EGA: 37.0 Monitoring: External US FHR- Baseline: 120s Variability: Moderate 6-25bpm Accelerations: 10X10 Decelerations: None FHR Category: Category I Admit Comment: presents to L_D for a scheduled IOL sec to GHTN w/ worsening blood pressures. She is GBS Neg. PLANS FOR LABOR AND DELIVERY Labor and Delivery: Plan Pain Management: Natural Feeding Preference: Breast Benefit of Breast Feed Discussed: Yes Circumcision: Yes INFORMED CONSENT Signature: with User ID: [email or web address]
[2018-10-24] MEDS ORDERED: LIDOCAINE 1% INJ-PF (10 MG/ML) 30 ML SDV ONE (07:58)
[2018-10-24] MEDS ORDERED: MISOPROSTOL 0.2 MG TABLET ONE (07:58)
[2018-10-24] MEDS ORDERED: OXYTOCIN/NORMAL SALINE 0 UNIT/0 ML RTUINJ ONE (07:58)
[2018-10-24 11:55] LABS: ABSOLUTE EOSINOPHILS # (AUTO) 0.1 10^3/uL (0.0-0.6); ABSOLUTE LYMPHOCYTES (AUTO) 1.9 10^3/uL (0.5-4.7); ABSOLUTE MONOCYTES (AUTO) 0.7 10^3/uL (0.1-1.4); ABSOLUTE NEUT (AUTO) 7.7 10^3/uL (1.7-8.2); BASOPHILS % (AUTO) 0.4 % (0-2); EOSINOPHILS % (AUTO) 0.6 % (0-6); HEMATOCRIT 38.7 % (36.0-47.0); MEAN CORPUSCULAR HEMOGLOBIN 28.8 pg (27.0-33.4); MEAN CORPUSCULAR HGB CONC 33.7 g/dL (32.0-36.0); MEAN CORPUSCULAR VOLUME 85 fl (80-97); MONOCYTES % (AUTO) 7.1 % (3-13); PLATELET COUNT 175 10^3/uL (150-450); RED BLOOD COUNT 4.53 10^6/uL (3.72-5.28); SEGMENTED NEUTROPHILS % (AUTO) 73.9 % (42-78); TOTAL CELLS COUNTED % (AUTO) 100 %; WHITE BLOOD COUNT 10.4 10^3/uL (4.0-10.5)
[2018-10-24] MEDS ORDERED: OXYTOCIN 10 UNIT/ML VIAL ONE (12:44)
[2018-10-24] MEDS ORDERED: DEXAMETHASONE SOD PHOSPHATE INJ 4 MG/1 ML VIAL ONE (12:49)
[2018-10-24] MEDS ORDERED: SUCCINYLCHOLINE CHLORIDE INJ 200 MG/10 ML VIAL ONE (12:49)
[2018-10-24] MEDS ORDERED: ONDANSETRON HCL INJ/PF 4 MG/2 ML SDV ONE (12:49)
[2018-10-24] MEDS ORDERED: METOCLOPRAMIDE HCL INJ/PF 10 MG/2 ML SDV ONE (12:49)
[2018-10-24] MEDS ORDERED: FENTANYL CITRATE INJ/PF 100 MCG/2 ML AMPUL ONE ×2 (12:52→13:53)
[2018-10-24] MEDS ORDERED: BUPIVACAINE HCL 0.5 % INJ/PF 30 ML SDV ONE (12:53)
[2018-10-24] MEDS ORDERED: ACETAMINOPHEN 325 MG TABLET PO PRN (13:10)
[2018-10-24] MEDS ORDERED: ACETAMINOPHEN 1,000 MG/100 ML RTUPB IV PRN (13:10)
[2018-10-24] MEDS ORDERED: MORPHINE SULFATE 10 MG/ML INJ IM PRN (13:10)
[2018-10-24] MEDS ORDERED: DIPH/PERTUSS(ACELL)/TETANUS VAC/PF 0.5 ML SYR (>=10YO) IM PRN (13:10)
[2018-10-24] MEDS ORDERED: MEASLES,MUMPS&RUBELLA VACC/PF 0.5 ML VIAL SUBCUT PRN (13:10)
[2018-10-24] MEDS ORDERED: SIMETHICONE 80 MG TAB.CHEW PO PRN (13:10)
[2018-10-24] MEDS ORDERED: PROMETHAZINE HCL INJ 25 MG/1 ML VIAL IV PRN ×3 (13:10→13:18)
[2018-10-24] MEDS ORDERED: OXYTOCIN/NORMAL SALINE 20 UNIT/1,000 ML RTUINJ IV PRN (13:10)
[2018-10-24] MEDS ORDERED: DIPHENHYDRAMINE HCL 50 MG/ML VIAL IV PRN (13:18)
[2018-10-24] MEDS ORDERED: FENTANYL CITRATE INJ/PF 100 MCG/2 ML AMPUL IV PRN ×2 (13:18)
[2018-10-24] MEDS ORDERED: ONDANSETRON HCL INJ/PF 4 MG/2 ML SDV IV PRN (13:18)
[2018-10-24] MEDS ORDERED: OXYCODONE-ACETAMINOPHEN 5-325 MG TABLET PO PRN ×2 (13:18)
[2018-10-24] MEDS ORDERED: MORPHINE SULFATE 10 MG/ML INJ IV PRN (13:18)
[2018-10-24] MEDS ORDERED: MEPERIDINE HCL/PF INJ 25 MG/1 ML DISP.SYRIN IV PRN (13:18)
--- NOTE | 2018-10-24 13:29 | OPERATIVE REPORT E ---
Operative Report NAME: TERESA WILLIAM : 1980 AGE: 38Y DATE OF SURGERY: 10/24/2018 ROOM: LR200 PREOPERATIVE DIAGNOSIS: IUP at term with prolapsed cord. POSTOPERATIVE DIAGNOSIS: IUP at term with prolapsed cord. OPERATION: Primary low-transverse with delivery of a viable male infant; Apgars and weight are pending. SURGEON: Lauren CLOUD M.D. ANESTHESIA: General. ESTIMATED BLOOD LOSS: Less than 600 mL. TISSUE REMOVED: Placenta. PROCEDURE: The patient was placed in a supine position and prepped and draped in a sterile fashion in an emergent fashion. The Pfannenstiel incision was made and the incision extended through subcutaneous tissue and fascia with sharp dissection. Fascia was sharply divided. Rectus muscle was sharply divided. Parietal peritoneum was entered with sharp dissection. Uterine midline was extended bilaterally. Head was then delivered through the uterine incision, nose and mouth suctioned with a bulb syringe, cord was clamped, and was passed from the table. The placenta was manually extracted. Uterus was closed in 2 layers, the first with a running stitch of 0 Vicryl and the second a Lembert stitch imbricating the first layer. Two areas of bleeding were noted and controlled with [id number] suture of 0 Vicryl. The fascia was then closed with 0 Vicryl and the skin was closed with subcu absorbable frederick. The patient's urine remained clear throughout the procedure, and she was taken to recovery in good condition. Infant went to nursery in good condition. DICTATING PHYSICIAN: Lauren CLOUD M.D. [id number] PHY#: [id number] ID: [id number] JOB#: [id number] ACCT: [id number] cc:Lauren CLOUD M.D. >
--- NOTE | 2018-10-24 13:35 | RADIOLOGY REPORT (SQ) ---
EXAM DESCRIPTION: KUB/ABDOMEN (SINGLE VIEW) COMPLETED DATE/TIME: 10/24/2018 1:20 pm REASON FOR STUDY: unable to count COMPARISON: None. NUMBER OF VIEWS: One view. TECHNIQUE: Supine radiographic image of the abdomen acquired. LIMITATIONS: None. FINDINGS: BOWEL GAS PATTERN: Normal bowel gas pattern. No dilated loops. CALCIFICATIONS: No suspicious calcifications. SOFT TISSUES: No gross mass or suggestion of organomegaly. HARDWARE: None. BONES: No bone lesions or fracture. OTHER: No other significant finding. IMPRESSION: No evidence of retained instruments. Reading location - IP/workstation name: [email or web address]
[2018-10-24] MEDS ORDERED: ACETAMINOPHEN 1,000 MG/100 ML RTUPB IV ONE (13:53)
[2018-10-24] MEDS: FENTANYL CITRATE INJ/PF 100 MCG/2 ML AMPUL IV PRN ×2 (13:55→15:50)
[2018-10-24] MEDS ORDERED: KETOROLAC TROMETHAMINE INJ/PF 30 MG/1 ML SDV IV SCH (14:00)
--- NOTE | 2018-10-24 15:24 | Delivery Summary ---
Del Sum A-C Datetime Report Generated by CPN: 10/24/2018 15:23 DELIVERY PERSONNEL DELIVERY PERSONNEL: [id number] Delivery Doctor:: Rigo Dan MD Nurse Photoengraving Supervisor Certified:: More Atkinson CNM Anesthesiologist:: Caprice De La Cruz MD FUR FINISHER TAILOR:: Eva Stoddard CRNA Labor and Delivery Nurse:: Soco Hines RNice maker Nurse:: Diamond Santiago RN Payroll Administrative Assistant:: Soco Hines RN Neonatal Nurse Practitioner:: GERRY Miller Nursery Nurse:: Jaye Acevedo RN It Business Systems Analyst/SEED CLEANER OPERATOR: ST Felix It Business Systems Analyst/SEED CLEANER OPERATOR: Sheridan Hines, COLOR TESTER MATERNAL INFORMATION Delivery Anesthesia: General Medications After Delivery: Pitocin Bolus-Please Comment; Pitocin Drip 20 Units/1000ml NSS Meds After Delivery Comment: Pitocin 20 units in 1 L NS bolusing per order Maternal Complications: Other Complication Details: umbilical cord prolapse LABOR SUMMARY EDC: 11/14/2018 00:00 No. Babies in Womb: 1 Attempted: No LABOR INFORMATION Reason for Induction: Pre-Eclampsia Onset of Labor: 10/24/2018 10:45 Complete Dilatation: 10/24/2018 12:28 Cervical Ripening Agents: Cervidil Group B Beta Strep: Negative Antibiotics # of Doses: 0 Steroids Given: None Reason Steroids Not Administered: Not Applicable MEMBRANES Membranes Rupture Method: Artificial Rupture of Membranes: 10/24/2018 10:45 Length of Rupture (hr): 1.93 Amniotic Fluid Color: Clear Amniotic Fluid Amount: Large STAGES OF LABOR Stage 1 hr: 1 Stage 1 min: 43 Stage 2 hr: 0 Stage 2 min: 13 Stage 3 hr: 0 Stage 3 min: 0 Total Time in Labor hr: 1 Total Time in Labor min: 56 VAGINAL DELIVERY Episiotomy: None Laceration #1: None Laceration Extension #1: N/A Laceration Repair: Not Applicable Sponge Count Correct: N/A Sharps Count Correct: N/A CSECTION DELIVERY Primary Indication: Prolapsed Cord Secondary Indication: N/A CSection Urgency: Emergency CSection Incidence: Primary Labor: Labor Elective: Nonelective CSection Incision: Lower Uterine Transverse BABY A INFORMATION Delivery Date/Time: 10/24/2018 12:41 Method of Delivery: Born in Route : No : N/A Forceps: N/A Vacuum Extraction: N/A Shoulder Dystocia : No PRESENTATION/POSITION BABY A Presentation: Cephalic Cephalic Presentation: Vertex PLACENTA INFORMATION BABY A Placenta Delivery Time : 10/24/2018 12:41 Placenta Method of Delivery: Manual Removal Placenta Status: Delivered SCORES BABY A Heart Rate 1 min: >100 bpm Resp Effort 1 min: Good Cry Reflex Irritability 1 min: Cough or Sneeze or Pulls Away Muscle Tone 1 min: Active Motion Color 1 min: Blue/Pale Resuscitation Effort 1 min: Tactile Stimulation SCORE 1 MIN: 8 Heart Rate 5 min: >100 bpm Resp Effort 5 min: Good Cry Reflex Irritability 5 min: Cough or Sneeze or Pulls Away Muscle Tone 5 min: Active Motion Color 5 min: Body [place], Extremities Blue Resuscitation Effort 5 min: Tactile Stimulation SCORE 5 MIN: 9 INFORMATION BABY A Gestational Age at Delivery: 37.0 Gestational Status: Early Term- 37- 38.6 Weeks Outcome : Liveborn Infant Condition : Stable Sex: Male WEIGHT/LENGTH BABY A Infant Birthweight (gm): 3560 Infant Weight (lb): 7 Weight (oz): 14 Length (in): 21.00 Infant Length (cm): 53.34 CORD INFORMATION BABY A No. Cord Vessels: 3 Nuchal Cord : N/A Cord Blood Taken: Yes-For Eval (Mom's Blood Type - or O+) Infant Suction: None ASSESSMENT BABY A Infant Complications: Extended Bradycardia; Multiple Variable Decels; Cord Prolapse Physical Findings at Delivery: Within Normal Limits Respirations: Appears Normal Skin to Skin: No Supervisor Dried Yeast/ALS Called : Yes Care By: Gage Acevedo RN Transferred To: Nursery BABY B INFORMATION : N/A SIGNATURES Signature: with User ID: [email or web address]
[2018-10-24] MEDS: OXYCODONE-ACETAMINOPHEN 5-325 MG TABLET PO PRN (17:30)
[2018-10-24] MEDS: DOCUSATE SODIUM 100 MG CAPSULE PO SCH (17:30)
[2018-10-24] MEDS: NIFEDIPINE 30 MG TAB.ER.24 PO SCH (22:03)
[2018-10-25] MEDS: KETOROLAC TROMETHAMINE INJ/PF 30 MG/1 ML SDV IV SCH ×2 (02:32→09:38)
[2018-10-25 06:49] LABS: MEAN CORPUSCULAR HEMOGLOBIN 29.8 pg (27.0-33.4); MEAN CORPUSCULAR HGB CONC 34.9 g/dL (32.0-36.0); MEAN CORPUSCULAR VOLUME 85 fl (80-97); PLATELET COUNT 147 10^3/uL (150-450); RED BLOOD COUNT 3.16 10^6/uL (3.72-5.28); RED CELL DISTRIBUTION WIDTH 14.4 % (11.5-14.0); WHITE BLOOD COUNT 14.2 10^3/uL (4.0-10.5)
[2018-10-25 07:25] LABS: HEMOGLOBIN 9.4 g/dL (12.0-15.5)
[2018-10-25] MEDS: NIFEDIPINE 30 MG TAB.ER.24 PO SCH ×2 (09:38→22:51)
[2018-10-25] MEDS: DOCUSATE SODIUM 100 MG CAPSULE PO SCH ×2 (09:38→17:04)
[2018-10-25] MEDS: PRENATAL VITAMIN W DHA CAPSULE PO SCH (09:38)
[2018-10-25] MEDS ORDERED: IBUPROFEN 800 MG TABLET PO SCH (12:00)
--- NOTE | 2018-10-25 12:23 | PDOC PROGRESS REPORT ---
Subjective-OB Progress Note for:: 10/25/18 Subjective: Pt doing well, no concerns. +flatus, reg diet and voiding without difficulty, reports light bleeding. Bonding with baby. Physical Exam (OB) Vital Signs: Temp Pulse Resp BP Pulse Ox 98.8 F 88 16 120/84 97 10/25/18 11:58 10/25/18 11:58 10/25/18 11:58 10/25/18 11:58 10/25/18 11:58 Intake & Output 10/24/18 10/25/18 10/26/18 06:59 06:59 06:59 Output Total 2450 500 Balance -2450 -500 Weight 77.2 kg - PIH/Pre-Eclampsia DTR's: 2 + Clonus: Negative Headache: Absent Epigastric Pain: No Visual Changes: No - Dressing Removed: No Incision: Dressing Closure Type: Miriam - Bilateral Tubal Ligation Dressing Removed: No - Lochia Lochia Amount: Scant < 10 ml Lochia Color: Rubra/Red - Abdomen Description: Tender, Soft, Round Hernia Present: No Fundal Description: Firm, Midline Fundal Height: u/u - u/2 Objective-Diagnostic Laboratory: 10/25/18 06:10 10/25/18 06:10 WBC 14.2 H RBC 3.16 L Hgb 9.4 L D Hct 27.0 L MCV 85 MCH 29.8 MCHC 34.9 RDW 14.4 H Plt Count 147 L Assessment and Plan(PN) - Assessment and Plan (1) AMA (advanced maternal age) multigravida 35+ Qualifiers: Trimester: third trimester Qualified Code(s): O09.523 - Supervision of elderly multigravida, third trimester Is this a current diagnosis for this admission?: Yes (2) Chronic hypertension affecting Is this a current diagnosis for this admission?: Yes (3) Delivery normal Is this a current diagnosis for this admission?: Yes - Time Spent with Patient Time with patient: Less than 15 minutes Medications reviewed and adjusted accordingly: Yes - Disposition Anticipated Discharge: Home Within: within 24 hours
[2018-10-25] MEDS: OXYCODONE-ACETAMINOPHEN 5-325 MG TABLET PO PRN (17:04)
[2018-10-25] MEDS: IBUPROFEN 800 MG TABLET PO SCH (23:05)
[2018-10-26] MEDS: IBUPROFEN 800 MG TABLET PO SCH ×2 (03:19→06:32)
--- NOTE | 2018-10-26 07:54 | PDOC DISCHARGE SUMMARY ---
Final Diagnosis Discharge Date: 10/26/18 - Final Diagnosis (1) AMA (advanced maternal age) multigravida 35+ Is this a current diagnosis for this admission?: Yes (2) Chronic hypertension affecting Is this a current diagnosis for this admission?: Yes (3) delivery delivered Is this a current diagnosis for this admission?: Yes (4) Umbilical cord prolapse in labor and delivery Is this a current diagnosis for this admission?: Yes Discharge Data - Discharge Medication Home Medications: Nifedipine [Procardia XL 30 mg Tablet] 1 tab PO BID 09/17/17 No.123/Iron/Folic AC [Elite-Ob Caplet] 1 each PO DAILY #30 tablet 10/17/17 Reason(s) for Admission: Induction of Labor, PIH Procedures: NST, Management of Obstetric Complications Intrapartum Procedure(s): : Low Cervical, Transverse - Diagnosis Test Laboratory: Temp Pulse Resp BP Pulse Ox 98.4 F 91 18 134/85 H 98 10/26/18 05:10 10/26/18 05:10 10/26/18 05:10 10/26/18 05:10 10/26/18 05:10 10/23/18 10/24/18 10/24/18 23:20 00:03 11:24 RBC 4.54 4.53 Hgb 12.9 13.0 Hct 38.9 38.7 Urine Opiates Screen NEGATIVE 10/25/18 06:10 RBC 3.16 L Hgb 9.4 L D Hct 27.0 L Urine Opiates Screen - Discharge information/Instructions Discharge Activity: Activity As Tolerated, No Lifting Over 10 Pounds, Pelvic Rest, No tub bath Discharge Diet: Regular Disposition: HOME, SELF-CARE [facility]: [facility]: 5, Days
[2018-10-26] MEDS: DOCUSATE SODIUM 100 MG CAPSULE PO SCH (10:24)
[2018-10-26] MEDS: PRENATAL VITAMIN W DHA CAPSULE PO SCH (10:24)
[2018-10-26] MEDS: NIFEDIPINE 30 MG TAB.ER.24 PO SCH (10:24)
[2018-10-26 12:24] VITALS: BP 117/85
== END 2018-10-26 13:00 | disposition home or self-care (01) | DRG 788 ==
LOC: LR 23:18 → 2N 10-24 16:07
PROVIDERS: ADMIT Obstetrics & Gynecology Gynecology; ATTEND Obstetrics & Gynecology Gynecology
PROC: 10D00Z1 Extraction of Products of Conception, Low, Open Approach (ICD-10-PCS; principal; 2018-10-24)
DX: O11.4 Pre-existing hypertension with pre-eclampsia, complicating childbirth (principal); O10.02 Pre-existing essential hypertension complicating childbirth; O69.0XX0 Labor and delivery complicated by prolapse of cord, not applicable or unspecified; O76 Abnormality in fetal heart rate and rhythm complicating labor and delivery; O99.214 Obesity complicating childbirth; E66.9 Obesity, unspecified; Z3A.37 37 weeks gestation of pregnancy; Z37.0 Single live birth
CPT/HCPCS: 1961; 36415; 74018; 80307; 85025; 85027; 86592; 86850; 86900; 86901; 94760; 94799; J0131; J0330; J1100; J1885; J2405; J2590; J2765; J3010; J3490